=== PATIENT | male | born 1945 | race Caucasian/White ===

== ENCOUNTER → 2016-10-19 | Outpatient (CLI) | payer OTHER ==
[2016-05-10 21:01] VITALS: BP 128/76
[2016-10-19 12:41] LABS: ALBUMIN 4.5 g/dL (3.4-5.0); BILIRUBIN,DIRECT 0.21 mg/dL (0-0.2); FREE T4 (FREE THYROXINE) 1.32 ng/dL (0.76-1.46); TOTAL PROTEIN 8.4 g/dL (6.4-8.2); TSH (3RD GENERATION) 1.803 uIU/mL (0.358-3.74)
--- NOTE | 2016-10-19 13:10 | CT ---
HISTORY: Low back pain, spinal stenosis Study: CT lumbar spine without contrast Comparison: Lumbar radiographs performed on December 30, 2015 Technique: Multiple axial images of the lumbar spine were obtained from the thoracolumbar junction to the sacrum without the administration of IV contrast. Sagittal and coronal reformats were perfor med and reviewed. Findings: Imaging of the lumbar spine demonstrates the patient to be status post L4-L5 posterior interbody fus ion. There is lucency along the tip of the right L5 pedicular screw for which loosening should be co nsidered. There is grade 1 anterolisthesis of L4 on L5. Very mild, grade 1, retrolisthesis of L3 on L4 is noted as well. Vertebral body height is maintained throughout. No compression fracture is visu alized. Exuberant, bulky multilevel marginal osteophytosis is present. Multilevel mild loss of disc space height is evident as well as minimal degenerative endplate changes anteriorly. Multilevel face t arthropathy is also present. At the L2-L3 level there appears to be a mild broad-based disc bulge with a right lateral recess predominance and facet hypertrophy, resulting in what appears to be very mild canal stenosis as well as mild neuroforaminal compromise on the right. At the L3-L4 level ther e is a broad-based calcified disc bulge as well as facet hypertrophy and ligamentum flavum thickenin g which, along with listhesis at this level, are resulting in what appears to be severe canal stenos is as well as severe bilateral neuroforaminal compromise. At the L4-L5 level there is a broad-based disc osteophyte as well as facet hypertrophy which, along with listhesis at this level, are resultin g in what appears to be severe neuroforaminal compromise. At the L5-S1 level there is a broad-based disc bulge as well as facet hypertrophy, resulting in what appears to be mild bilateral neuroforamin al compromise. Evaluation of the pre and paravertebral soft tissues is grossly unremarkable. There i s diverticulosis of the colon. A large amount of calcified plaque is identified at the origin of the celiac trunk, likely resulting in significant stenosis. There is ectasia of the bilateral common il iac arteries. IMPRESSION: 1. Multilevel degenerative disc disease and facet arthropathy, most significant at the L3-L4 level, where there appears to be severe canal stenosis as well as severe bilateral neuroforaminal compromi se. 2. Status post L4-L5 posterior interbody fusion, with possible loosening along the tip of the right L5 pedicular screw. Please see above discussion regarding incidental abdominal findings. Reported By:
== END | disposition home or self-care (01) | DRG 552 ==
LOC: RAD 11:50
PROVIDERS: ATTEND Nurse Practitioner Family
DX: M54.5 Low back pain (principal); M48.06 Spinal stenosis, lumbar region; Z51.81 Encounter for therapeutic drug level monitoring; E78.4 Other hyperlipidemia
CPT/HCPCS: 36415; 72131; 80076; 84439; 84443

== ENCOUNTER 2017-02-10 11:38 | Observation (INO) | payer OTHER ==
[2017-02-10 11:47] VITALS: BMI 23.6
--- NOTE | 2017-02-10 12:26 | DR.GENAD ---
HPI - PCP Primary Care Physician: Radhika - HPI Comment HPI Comment: NO FEVER. PATIENT COUGHING. PATIENT IS WEAK AND HAVE EXERSIONAL DYSPNEA AND PND. - Complaint/Symptoms Chief Complaint Doctors Comments: INCRESING SOB FOR FEW DAYS WORSE TODAY. SOME CHEST DISCOMFORT. Chief Complaint:: "I have been having shortness of breath now for about 2-3 days. I can't seem to take a deep breath. It has even kept me up at night. I also just feel so weak." - Nurses notes reviewed Nurses Notes Review: Yes - Source History Provided: Patient, EMS - Mode of Arrival Mode of Arrival: Ambulatory - Timing Onset of Chief Complaint: 02/08/17 Came on: Gradually - Duration Duration: Constant Duration: Days - Severity Severity: Moderate PMH - PMH Past Medical History: Yes Past Medical History: Angina, Anxiety, Coronary Artery Disease, Diabetes, Hypertension, [place] Past Surgical History: Yes Surgical History: CABG/Valve Surgery, Other - Family History History of Family Medical Conditions: Yes Family Medical History: Cancer, Coronary Artery Disease - Social History Does patient currently use any type of tobacco product: No Have you used tobacco products in the last 12 months: No Type of Tobacco Use: None Does any household member use tobacco: No Alcohol Use: None Do you use any recreational Drugs:: No Lives With: Alone Lives Where: Home - infectious screening In the last 2 months have you had wt loss of >10#?: NO Have you had fever, night sweats or hemotysis?: No Have you traveled outside the country in the last 6 months?: No Isolation: Standard ROS - Review of Systems Constitutional: Weakness, Fatigue. negative: See HPI, Fever Eyes: No Symptoms Reported. negative: Eye Pain, Discharge ENTM: No Symptoms Reported. negative: Ear Discharge, Nose Discharge, Nose Congestion, Throat Pain Respiratoy: Productive Cough, Short of Breath, Wheezing. negative: Hemoptysis Cardiovascular: Chest Pain. negative: Edema, Palpitations, Syncope Gastrointestinal/Abdominal: Nausea. negative: Abdominal Pain, Diarrhea, Vomiting Genitourinary: No Symptoms Reported. negative: Dysuria, Frequency, Hematuria Neurological: Weakness, Dizziness Musculoskeletal: Muscle Pain Integumentary: No Symptoms Reported Hematologic/Lymphatic: Easy Bleeding, Easy Bruising Endocrine: No Symptoms Reported All Other Systems: Reviewed and Negative PE - Vital Signs Vitals: Temperature 98 F Pulse Rate 77 Respiratory Rate 18 Blood Pressure [Left Arm] 112/66 Blood Pressure 139/88 O2 Sat by Pulse Oximetry 100 - General Limitations: No Limitations General Appearance: Alert - Head Head Exam: Normal Inspection - Eyes Eye exam: Normal Appearance - ENT ENT Exam: Normal External Ear Exam External Ear Exam: Normal External Inspection TM/Canal Exam: Bilateral Normal Nose Exam: Normal Nose Exam Mouth Exam: Normal Inspection Throat Exam: Normal Inspection - Neck Neck Exam: Trachea Midline - Chest Chest Inspection: Symmetric Chest Wall Rise - Respiratory Respiratory Exam: Respiratory Distress Respiratory Exam: Bilateral Wheezing, Bilateral Rhonchi, Upper Wheezing, Upper Rhonchi, Lower Wheezing, Lower Rhonchi - Cardiovascular Cardiovascular Exam: Regular Rate, Normal Rhythm, Normal Heart Sounds - Abdominal Exam Abdominal Exam: Normal Bowel Sounds, Soft. negative: Tenderness - Extremities Extremities Exam: Normal Inspection. negative: Tenderness, Edema - Back Back Exam: Normal Inspection - Neurologic Neurological Exam: Alert, Oriented X3 - Psychiatric Psychiatric Exam: Anxious - Skin Skin Exam: Normal Color MDM - Differential Diagnosis Differential Diagnosis: COPD WITH BRONCHITIS, PNEUMONIA, CHF, [place], Course - Treatment Treatment: SEE ORDERS. LASIX IV IN ED. - Consultation Consultation Comments: DISCUSS PATIENT WITH DR. TORRES. HE WILL ADMIT PATIENT. - Education/Counseling Education/Counseling: Patient, Education Educated On: Treatment, Diagnosis, Needs for Follow Up ROR - Labs Reviewed Laboratory Results Reviewed?: Yes Result Diagrams: 02/11/17 04:55 02/11/17 04:55 - XRAY XRAY Interpreted by: Radiologist - EKG Rhythm: Paced (EKG NOTED.) - Diagnosis Discharge Problem: Respiratory distress CHF (congestive heart failure) Qualifiers: Congestive heart failure type: combined Congestive heart failure chronicity: acute on chronic Qualified Code(s): I50.43 - Acute on chronic combined systolic (congestive) and diastolic (congestive) heart failure - Discharge Plan Disposition: ADMITTED INPATIENT Condition: Stable - Follow ups/Referrals - Instructions
[2017-02-10 12:54] LABS: BASOPHILS % (AUTO) 0.5 % (0.2-1.0); EOSINOPHILS # (AUTO) 0.1 x10^3/uL (0.0-0.2); EOSINOPHILS % (AUTO) 1.3 % (0.9-2.9); HEMATOCRIT 34.8 % (42.0-54.0); HEMOGLOBIN 11.6 g/dL (13.5-18.0); LYMPHOCYTES # (AUTO) 0.7 X10^3/uL (1.3-2.9); LYMPHOCYTES % (AUTO) 16.5 % (21.0-51.0); MEAN CORPUSCULAR HEMOGLOBIN 31.3 pg (27.0-34.0); MEAN CORPUSCULAR HGB CONC 33.3 g/dL (33.0-35.0); MEAN CORPUSCULAR VOLUME 94.1 fL (80.0-100.0); MONOCYTES # (AUTO) 0.5 x10^3/uL (0.3-0.8); MONOCYTES % (AUTO) 11.7 % (0.0-13.0); NEUTROPHILS # (AUTO) 2.9 x10^3/uL (2.2-4.8); PLATELET COUNT 126 X10^3/uL (150.0-450.0); RED CELL DISTRIBUTION WIDTH 14.9 % (11.6-16.5); WHITE BLOOD COUNT 4.1 X10^3/uL (3.6-10.0)
--- NOTE | 2017-02-10 13:05 | RAD ---
HISTORY: Shortness of breath Study: Single view chest Comparison: 03/09/2016 Findings: Stable chronic sternotomy changes and AICD. There are small bilateral pleural effusions with pulmonar y vascular congestion and hazy perihilar opacities compatible with pulmonary edema. Mildly enlarged c ardiac silhouette. The soft tissues are unremarkable. IMPRESSION: 1. Findings compatible with pulmonary edema and small bilateral effusions. Reported By:
[2017-02-10 13:14] LABS: BLOOD UREA NITROGEN 22 mg/dL (7-18); CALCIUM 8.4 mg/dL (8.5-10.1); CARBON DIOXIDE 26.9 mmol/L (21-32); CHLORIDE 103 mmol/L (98-107); CREATININE 1.44 mg/dL (0.70-1.30); SODIUM 141 mmol/L (136-145); TROPONIN I 0.02 ng/mL (0-1.5); eGFR BLACK RACES > 60 (>60); eGFR NON BLACK RACES 51 (>60)
[2017-02-10 13:16] LABS: ALANINE AMINOTRANSFERASE 61 Units/L (12-78); ALBUMIN 3.3 g/dL (3.4-5.0); ALKALINE PHOSPHATASE 75 Units/L (46-116); ASPARTATE AMINO TRANSFERASE 29 Units/L (15-37); CKMB % 2.8 % (<4); CREATINE KINASE 72 Units/L (39-308); TOTAL PROTEIN 6.3 g/dL (6.4-8.2)
[2017-02-10] MEDS ORDERED: LASIX IVP ONE ×2 (13:54→14:06)
[2017-02-10 20:07] LABS: CKMB % 2.2 % (<4); CREATINE KINASE MB 1.7 ng/mL (0-4.0); TROPONIN I 0.04 ng/mL (0-1.5)
[2017-02-10] MEDS ORDERED: RESTORIL CAP 15 MG PO PRN (20:13)
[2017-02-10] MEDS ORDERED: XANAX PO PRN (20:13)
[2017-02-10] MEDS ORDERED: PATIENT'S HOME MEDICATION (Metformin Hcl [Metformin Hcl] 1,000 MG) PO SCH (20:15)
[2017-02-10] MEDS ORDERED: GLUCOPHAGE ONE (20:34)
[2017-02-10] MEDS: ZESTRIL TAB 5 MG PO SCH (20:49)
[2017-02-10] MEDS: GLUCOPHAGE PO SCH (20:49)
[2017-02-10] MEDS: LASIX IVP SCH (20:49)
[2017-02-10] MEDS: K-DUR TAB 20 MEQ PO SCH (20:49)
[2017-02-10] MEDS ORDERED: HumuLIN R SUBCUT PRN (22:39)
[2017-02-10] MEDS: NORCO 10/325 TAB PO SCH (22:40)
[2017-02-11 01:57] LABS: CKMB % 2.2 % (<4); CREATINE KINASE MB 1.6 ng/mL (0-4.0); TROPONIN I 0.03 ng/mL (0-1.5)
[2017-02-11 05:15] LABS: BASOPHILS % (AUTO) 0.6 % (0.2-1.0); EOSINOPHILS # (AUTO) 0.1 x10^3/uL (0.0-0.2); EOSINOPHILS % (AUTO) 1.9 % (0.9-2.9); HEMATOCRIT 35.1 % (42.0-54.0); LYMPHOCYTES # (AUTO) 1.1 X10^3/uL (1.3-2.9); LYMPHOCYTES % (AUTO) 28.6 % (21.0-51.0); MEAN CORPUSCULAR HEMOGLOBIN 31.7 pg (27.0-34.0); MEAN CORPUSCULAR HGB CONC 34.2 g/dL (33.0-35.0); MEAN CORPUSCULAR VOLUME 92.9 fL (80.0-100.0); MEAN PLATELET VOLUME 8.9 fL (7.4-11.0); MONOCYTES # (AUTO) 0.6 x10^3/uL (0.3-0.8); MONOCYTES % (AUTO) 15.4 % (0.0-13.0); NEUTROPHILS # (AUTO) 2.1 x10^3/uL (2.2-4.8); NEUTROPHILS % (AUTO) 53.5 % (42.0-75.0); PLATELET COUNT 141 X10^3/uL (150.0-450.0); RED BLOOD COUNT 3.78 X10^6/uL (4.7-6.0); RED CELL DISTRIBUTION WIDTH 14.9 % (11.6-16.5); WHITE BLOOD COUNT 3.9 X10^3/uL (3.6-10.0)
[2017-02-11 05:23] LABS: ALANINE AMINOTRANSFERASE 58 Units/L (12-78); ALBUMIN 3.5 g/dL (3.4-5.0); ALKALINE PHOSPHATASE 80 Units/L (46-116); ASPARTATE AMINO TRANSFERASE 28 Units/L (15-37); BLOOD UREA NITROGEN 21 mg/dL (7-18); CALCIUM 8.7 mg/dL (8.5-10.1); CARBON DIOXIDE 30.9 mmol/L (21-32); CHLORIDE 101 mmol/L (98-107); CREATININE 1.51 mg/dL (0.70-1.30); SODIUM 142 mmol/L (136-145); TOTAL PROTEIN 6.7 g/dL (6.4-8.2); eGFR BLACK RACES 59 (>60); eGFR NON BLACK RACES 49 (>60)
[2017-02-11] MEDS: NORCO 10/325 TAB PO SCH (06:22)
[2017-02-11] MEDS ORDERED: COLACE CAP 100 MG PO PRN (07:54)
[2017-02-11 08:04] VITALS: BP 97/59
[2017-02-11] MEDS ORDERED: LASIX PO SCH (09:00)
[2017-02-11] MEDS ORDERED: GLUCOPHAGE ONE (09:08)
[2017-02-11] MEDS: LASIX IVP SCH (09:16)
[2017-02-11] MEDS: K-DUR TAB 20 MEQ PO SCH (09:16)
[2017-02-11] MEDS: ZESTRIL TAB 5 MG PO SCH (09:16)
[2017-02-11] MEDS: GLUCOPHAGE PO SCH (09:17)
[2017-02-11] MEDS ORDERED: SNACK - Diabetic Appropriate PO SCH (20:00)
== END 2017-02-11 09:30 | disposition home or self-care (01) | DRG 189 ==
LOC: ER 11:55 → INTOOBSV 16:36 → ICU 16:36
PROVIDERS: ADMIT Internal Medicine; ATTEND Internal Medicine
DX: J81.0 Acute pulmonary edema (principal); R06.09 Other forms of dyspnea; I50.43 Acute on chronic combined systolic (congestive) and diastolic (congestive) heart failure; R06.02 Shortness of breath; I25.10 Atherosclerotic heart disease of native coronary artery without angina pectoris; I10 Essential (primary) hypertension; F41.8 Other specified anxiety disorders; R94.31 Abnormal electrocardiogram [ECG] [EKG]; E11.65 Type 2 diabetes mellitus with hyperglycemia; Z95.810 Presence of automatic (implantable) cardiac defibrillator
CPT/HCPCS: 36415; 71010; 80053; 82550; 82553; 84484; 85025; 93005; 93010; 96374; 99284; 99285; A4216; A4222; G0378; J1815; J1940

== ENCOUNTER → 2017-02-15 | Outpatient (CLI) | payer OTHER ==
[2017-02-11 08:04] VITALS: BP 97/59
[2017-02-15 12:26] LABS: ALBUMIN 3.6 g/dL (3.4-5.0); BILIRUBIN,DIRECT 0.32 mg/dL (0-0.2); TOTAL PROTEIN 6.6 g/dL (6.4-8.2); TSH (3RD GENERATION) 5.542 uIU/mL (0.358-3.74)
== END ==
LOC: LAB 11:33
PROVIDERS: ATTEND Internal Medicine Clinical Cardiac Electrophysiology
DX: Z51.81 Encounter for therapeutic drug level monitoring (principal); Z79.899 Other long term (current) drug therapy
CPT/HCPCS: 36415; 80076; 84443

== ENCOUNTER → 2017-03-11 | Outpatient (CLI) | payer OTHER ==
[2017-02-11 08:04] VITALS: BP 97/59
[2017-03-11 10:10] LABS: ALANINE AMINOTRANSFERASE 28 Units/L (12-78); ALBUMIN 3.6 g/dL (3.4-5.0); ALKALINE PHOSPHATASE 70 Units/L (46-116); ASPARTATE AMINO TRANSFERASE 24 Units/L (15-37); BLOOD UREA NITROGEN 20 mg/dL (7-18); CALCIUM 8.8 mg/dL (8.5-10.1); CARBON DIOXIDE 28.3 mmol/L (21-32); CHLORIDE 102 mmol/L (98-107); CHOLESTEROL 109 mg/dL (0-200); CREATININE 1.63 mg/dL (0.70-1.30); HDL CHOLESTEROL 55 mg/dL (40-60); SODIUM 141 mmol/L (136-145); TOTAL PROTEIN 6.5 g/dL (6.4-8.2); TRIGLYCERIDES 56 mg/dL (0-150); TSH (3RD GENERATION) 3.357 uIU/mL (0.358-3.74); eGFR BLACK RACES 54 (>60); eGFR NON BLACK RACES 44 (>60)
[2017-03-11 10:12] LABS: CREATININE,URINE 119.03 mg/dL (40-278); MICROALBUMIN,URINE 28.4 mg/L
== END ==
LOC: LAB 09:22
PROVIDERS: ATTEND Nurse Practitioner Family
DX: I10 Essential (primary) hypertension (principal); E11.9 Type 2 diabetes mellitus without complications; E78.4 Other hyperlipidemia
CPT/HCPCS: 36415; 80053; 80061; 82043; 82306; 84443

== ENCOUNTER 2017-03-30 08:26 | Emergency (ER) | payer OTHER ==
[2017-03-30 08:30] VITALS: BP 142/92; BMI 24.3
--- NOTE | 2017-03-30 08:44 | DR.N/VMALE ---
HPI - Time Seen Time seen: 08:40 - Primary Care Physician Primary Care Physician: SEGUNDO RICOP - HPI Comment HPI Comment: PATIENT ALSO HAVE HEADACHE. NOT HOLDING DOWN FOOG. VOMITUS IS CLEAR MUCOUS. - Complaints Chief Complaint Doctors Comments: CONGESTION AND SINUS DRAINAGE FOR FEW DAYS. PATIENT IS NOW VOMITING AND IS NAUSEATED. HAVE HISTORY OF GALL STONE. NO FEVER. Chief Complaint:: PT. STATES HE BEGAN VOMITING YESTERDAY MORNING AND HAS BEEN UNABLE TO KEEP ANYTHING DOWN SINCE ONSET. PT. STATES HE HAS BEEN VOMITING PHLEGM. PT. ALSO C/O HEADACHE. - Reviewed Nurses Notes Reviewed: Yes - Source History Provided: Patient - Mode of Arrival Mode of Arrival: Ambulatory - Timing Onset of Chief Complaint: 03/29/17 - Context Onset: Spontaneous Recent: None History of: None - Quality Quality: Bilious - Associated Signs and Symptoms Abdominal Pain Quality: Cramping Abdominal Pain Location: Diffuse Symptoms: Abdominal Pain PMH - PMH Past Medical History: Yes Past Medical History: Angina, Anxiety, Coronary Artery Disease, Diabetes, Hypertension, [place] Past Surgical History: Yes Surgical History: CABG/Valve Surgery, Other - Family History History of Family Medical Conditions: Yes Family Medical History: Cancer, Coronary Artery Disease - Social History Does patient currently use any type of tobacco product: No Have you used tobacco products in the last 12 months: No Type of Tobacco Use: None Does any household member use tobacco: No Alcohol Use: None Do you use any recreational Drugs:: No Lives With: Spouse Lives Where: Home - infectious screening In the last 2 months have you had wt loss of >10#?: NO Have you had fever, night sweats or hemotysis?: No Have you traveled outside the country in the last 6 months?: No Isolation: Standard ROS - Review of Systems Constitutional: No Symptoms Reported. negative: Chills, Fever, Weakness, Fatigue Eyes: No Symptoms Reported. negative: Eye Pain, Discharge ENTM: Nose Discharge, Nose Congestion, Throat Pain. negative: Ear Discharge Respiratoy: No Symptoms Reported, Non-Productive Cough Cardiovascular: No Symptoms Reported Gastrointestinal/Abdominal: Abdominal Pain, Nausea, Vomiting Genitourinary: negative: Dysuria, Hematuria Neurological: Headache Musculoskeletal: Joint Pain. negative: Joint Swelling Integumentary: No Symptoms Reported Hematologic/Lymphatic: No Symptoms Reported Endocrine: No Symptoms Reported All Other Systems: Reviewed and Negative PE - Vital Signs Vitals: Temperature 98.3 F Pulse Rate 77 Respiratory Rate 17 Blood Pressure [Left Arm] 97/59 Blood Pressure 142/92 O2 Sat by Pulse Oximetry 99 - General Limitations: No Limitations General Appearance: Alert - Head Head Exam: Normal Inspection - Eyes Eye exam: Normal Appearance - ENT ENT Exam: Normal External Ear Exam - Neck Neck Exam: Normal Inspection - Chest Chest Inspection: Symmetric Chest Wall Rise - Respiratory Respiratory Exam: Normal Lung Sounds Bilat Respiratory Exam: Bilateral Rhonchi, Lower Rhonchi - Cardiovascular Cardiovascular Exam: Regular Rate, Normal Rhythm, Normal Heart Sounds - Abdominal Exam Abdominal Exam: Normal Bowel Sounds, Soft, Tenderness Abdominal Tenderness: Diffuse, Moderate - Rectal Rectal Exam: Deferred - Exam: Male: Scrotal Swelling. negative: Urethral Discharge - Extremities Extremities Exam: Normal Inspection - Back Back Exam: Normal Inspection - Neurologic Neurological Exam: Alert, Oriented X3 - Psychiatric Psychiatric Exam: Normal Affect, Normal Mood - Skin Skin Exam: Normal Color MDM - Additional Information Obtained Additional Information Obtained From: Family - Differential Diagnosis Differential Diagnosis: Considerations may Include:: Bowel Obstruction, Cholecystitis, Gastritis, Gastroenteritis, Inflammatory BD, PUD (ABDOMINAL PAIN , CHOLELITHIASIS, N/V, GASSTROENTERITTIS), Urinary Tract Infection, Urolithiasis Course - Treatment Treatment: SEE ORDERS. PER DAUGHTER, GALL STONE DIAGNOSE IN [facility]. HE IS GOING TO [facility] IN A WEEK. THEY WILL TAKE CARE OF THE GALL STONE THERE. - Reevaluation 1st: Improved (WITH IM PED IN ED.) - Education/Counseling Education/Counseling: Patient, Education Educated On: Treatment, Diagnosis ROR - Labs Reviewed Laboratory Results Reviewed?: Yes Result Diagrams: 03/30/17 09:17 03/30/17 09:17 Laboratory: WBC 6.3 X10^3/uL (3.6-10.0) 03/30/17 09:17 RBC 4.15 X10^6/uL (4.7-6.0) L 03/30/17 09:17 Hgb 12.8 g/dL (13.5-18.0) L 03/30/17 09:17 Hct 39.0 % (42.0-54.0) L 03/30/17 09:17 MCV 94.0 fL (80.0-100.0) 03/30/17 09:17 MCH 30.8 pg (27.0-34.0) 03/30/17 09: MCHC 32.8 g/dL (33.0-35.0) L 03/30/17 09: RDW 15.6 % (11.6-16.5) 03/30/17 09:17 Plt Count 129 X10^3/uL (150.0-450.0) L 03/30/17 09:17 MPV 9.4 fL (7.4-11.0) 03/30/17 09: Neut % 76.5 % (42.0-75.0) H 03/30/17 09: Lymph % 11.7 % (21.0-51.0) L 03/30/17 09: [place] % 11.5 % (0.0-13.0) 03/30/17 09: Eos % 0.0 % (0.9-2.9) L 03/30/17 09:17 Baso % 0.3 % (0.2-1.0) 03/30/17 09:17 Neut # 4.8 x10^3/uL (2.2-4.8) 03/30/17 09:17 Lymph # 0.7 X10^3/uL (1.3-2.9) L 03/30/17 09:17 [place] # 0.7 x10^3/uL (0.3-0.8) 03/30/17 09:17 Eos # 0.0 x10^3/uL (0.0-0.2) 03/30/17 09:17 Baso # 0.0 X10^3/uL (0.0-0.1) 03/30/17 09:17 Absolute Nucleated RBC 0.1 /100WBC 03/30/17 09:17 Sodium 141 mmol/L (136-145) 03/30/17 09:17 Corrected Sodium TNP 03/30/17 09:17 Potassium 4.3 mmol/L (3.5-5.1) 03/30/17 09:17 Chloride 103 mmol/L (98-107) 03/30/17 09:17 Carbon Dioxide 22.2 mmol/L (21-32) 03/30/17 09:17 BUN 35 mg/dL (7-18) H 03/30/17 09:17 Creatinine 1.83 mg/dL (0.70-1.30) H 03/30/17 09:17 Est GFR (MDRD) Af Amer 47 (>60) L 03/30/17: Est GFR (MDRD) Non-Af 39 (>60) L 03/30/17 09:17 Glucose 107 mg/dL (65-99) H 03/30/17 09: Calcium 8.7 mg/dL (8.5-10.1) 03/30/17: Corrected Calcium TNP 03/30/17: Total Bilirubin 3.00 mg/dL (0.2-1.0) H 03/30/17 09: AST 684 Units/L (15-37) H 03/30/17:17 ALT 378 Units/L (12-78) H 03/30/17 09:17 Alkaline Phosphatase 161 Units/L (46-116) H 03/30/17 09:17 Total Protein 6.8 g/dL (6.4-8.2) 03/30/17 09: Albumin 3.7 g/dL (3.4-5.0) 03/30/17 09: Globulin 3.1 g/dL (2.5-4.5) 03/30/17 09: Albumin/Globulin Ratio 1.2 Ratio (1.1-2.1) 03/30/17 09:17 Amylase 28 Units/L (25-115) 03/30/17 09:17 Lipase 98 Units/L (73-393) 03/30/17 09:17 Specimen Type Clean catch urine 03/30/17 09:03 Urine Color [place] (YELLOW) 03/30/17 09:03 Urine Appearance Clear (CLEAR) 03/30/17 09:03 Urine pH 5.0 (5.0 - 8.0) 03/30/17 09:03 Ur Specific [place] 1.025 (1.000-1.030) 03/30/17 09:03 Urine Protein 3+ (NEGATIVE) 03/30/17 09:03 Urine Glucose (UA) Negative (NEGATIVE) 03/30/17 09:03 Urine Ketones 2+ (NEGATIVE) 03/30/17 09:03 Urine Occult Blood 1+ (NEGATIVE) 03/30/17 09:03 Urine Nitrite Negative (NEGATIVE) 03/30/17 09:03 Urine Bilirubin 1+ (NEGATIVE) 03/30/17 09:03 Urine Urobilinogen 2+ (NORMAL) 03/30/17 09:03 Ur Leukocyte Esterase 1+ (NEGATIVE) 03/30/17 09:03 Urine RBC Rare /HPF (NEGATIVE) 03/30/17 09:03 Urine WBC 0-2 /HPF (NEGATIVE) 03/30/17 09:03 Ur Squamous Epith Cells Rare /HPF (NEGATIVE) 03/30/17 09:03 Urine Bacteria Trace /HPF (NEGATIVE) 03/30/17 09:03 Hyaline Casts Few /LPF (NEGATIVE) 03/30/17 09:03 Urine Mucus Few /HPF (NEGATIVE) 03/30/17 09:03 Ur Culture Indicated? No/not indicated 03/30/17 09:03 - XRAY XRAY Interpreted by: Radiologist XRAY Findings: REPORT DISCUSS WITH PATIENT. - Diagnosis Discharge Problem: Nausea and vomiting in adult patient Abdominal pain Qualifiers: Abdominal location: generalized Qualified Code(s): R10.84 - Generalized abdominal pain - Discharge Plan Disposition: HOME, SELF-CARE Condition: Stable Prescriptions: Amoxicillin [Amoxil 875 mg] 875 mg PO Q12H #20 tab Cetirizine HCl [Zyrtec] 10 mg PO DAILY #30 tab Ondansetron HCl [Zofran Tab 4 mg] 4 mg PO Q8H PRN #12 tab PRN Reason: Nausea/Vomiting - Follow ups/Referrals Follow ups/Referrals: RENÉ KANG [Primary Care Provider] - 03/31/17 GREGORY MORENO [CONSULTING PHYSICIAN] - 2 days - Instructions Instructions: Cholelithiasis, Sinusitis, Adult, [id number], Abdominal Pain, Adult, [id number] Additional Instructions: RETURN TO ED IF WORSE.
[2017-03-30] MEDS ORDERED: ZOFRAN INJ 4 MG VIAL IVP ONE (08:59)
[2017-03-30] MEDS ORDERED: ZOFRAN INJ 4 MG VIAL IM ONE (09:03)
[2017-03-30] MEDS ORDERED: ZOFRAN INJ 4 MG VIAL ONE (09:04)
[2017-03-30 09:25] LABS: BILIRUBIN,URINE 1+ (NEGATIVE); BLOOD/HEMOGLOBIN,URINE 1+ (NEGATIVE); GLUCOSE, URINE NEGATIVE (NEGATIVE); KETONES,URINE 2+ (NEGATIVE); LEUKOCYTE ESTERASE ,URINE 1+ (NEGATIVE); NITRITES,URINE NEGATIVE (NEGATIVE); PROTEIN,URINE 3+ (NEGATIVE); UROBILINOGEN,URINE 2+ (NORMAL)
[2017-03-30 09:29] LABS: BASOPHILS % (AUTO) 0.3 % (0.2-1.0); HEMOGLOBIN 12.8 g/dL (13.5-18.0); LYMPHOCYTES # (AUTO) 0.7 X10^3/uL (1.3-2.9); LYMPHOCYTES % (AUTO) 11.7 % (21.0-51.0); MEAN CORPUSCULAR HEMOGLOBIN 30.8 pg (27.0-34.0); MEAN CORPUSCULAR HGB CONC 32.8 g/dL (33.0-35.0); MEAN PLATELET VOLUME 9.4 fL (7.4-11.0); MONOCYTES # (AUTO) 0.7 x10^3/uL (0.3-0.8); MONOCYTES % (AUTO) 11.5 % (0.0-13.0); NEUTROPHILS # (AUTO) 4.8 x10^3/uL (2.2-4.8); NEUTROPHILS % (AUTO) 76.5 % (42.0-75.0); PLATELET COUNT 129 X10^3/uL (150.0-450.0); RED BLOOD COUNT 4.15 X10^6/uL (4.7-6.0); RED CELL DISTRIBUTION WIDTH 15.6 % (11.6-16.5); WHITE BLOOD COUNT 6.3 X10^3/uL (3.6-10.0)
[2017-03-30 09:37] LABS: ALANINE AMINOTRANSFERASE 378 Units/L (12-78); ALBUMIN 3.7 g/dL (3.4-5.0); ALKALINE PHOSPHATASE 161 Units/L (46-116); AMYLASE 28 Units/L (25-115); ASPARTATE AMINO TRANSFERASE 684 Units/L (15-37); BLOOD UREA NITROGEN 35 mg/dL (7-18); CALCIUM 8.7 mg/dL (8.5-10.1); CARBON DIOXIDE 22.2 mmol/L (21-32); CHLORIDE 103 mmol/L (98-107); CREATININE 1.83 mg/dL (0.70-1.30); LIPASE 98 Units/L (73-393); SODIUM 141 mmol/L (136-145); TOTAL PROTEIN 6.8 g/dL (6.4-8.2); eGFR BLACK RACES 47 (>60); eGFR NON BLACK RACES 39 (>60)
[2017-03-30 09:45] LABS: APPEARANCE,URINE CLEAR (CLEAR); BACTERIA,URINE TRACE /HPF (NEGATIVE); COLOR,URINE AMBER (YELLOW); RBC,URINE RARE /HPF (NEGATIVE); SQUAMOUS EPITHELIAL CELL,UR RARE /HPF (NEGATIVE)
[2017-03-30 09:46] LABS: HYALINE CASTS, URINE FEW /LPF (NEGATIVE); MUCUS,URINE FEW /HPF (NEGATIVE)
--- NOTE | 2017-03-30 09:53 | RAD ---
The examination: Abdomen series with PA chest History: Abdominal pain, nausea and vomiting Findings: PA chest: The the heart is borderline enlarged. Sternal wires are present. A multi chamber pacemaker is present. The lungs and pleural spaces are clear. Abdomen: Supine and erect views of abdomen demonstrate mild small and large bowel distention in the u pper abdomen. No fluid level formation, free air, mass formation or ascites is identified. There is a rteriosclerotic calcification involving branches of the celiac trunk. Surgical fusion hardware is pre sent at the L4-5 level. Impression: 1. Mild cardiomegaly with post sternotomy changes and cardiac pacing device. 2. Slight nonobstructive intestinal distention consistent with ileus. 3. Significant aortoiliac and visceral arteriosclerosis. 4. Status post lumbar fusion. Reported By:
== END 2017-03-30 10:54 | disposition home or self-care (01) ==
LOC: ER 08:33
DX: R10.84 Generalized abdominal pain (principal); R11.2 Nausea with vomiting, unspecified; I51.7 Cardiomegaly
CPT/HCPCS: 36415; 74022; 80053; 81001; 82150; 83690; 85025; 96372; 99283; J2405

== ENCOUNTER 2021-12-01 12:14 | Observation (INO) ==
--- NOTE | 2021-12-01 12:29 | DR.AMS ---
HPI Time Seen Time Seen by Provider: 12/01/21 12:20 Complaint Cheif Complaint Doctors Comments: PATIENT WAS AT PAP OFFICE AND LEFT AND PASSED OUT IN HIS VEHICLE. PATIENT WAS WITH PULSE WHEN JUNIOR SYSTEMS ADMINISTRATOR ARRIVED. THERE WERE INDIVIDUALS ON THE SCENE DOING CPR BUT PARAMEDIS CHECKED JENNIFER PULSE AND IT WS WEAK BUT PRESENT. THE PATIENT BECAME IMMEDIATELY ALERT AFTER PARAMEDICS ARRIVED ON SCENE. PMH PMH Past Medical History: Angina, Anxiety, Coronary Artery Disease, Diabetes, Hypertension and HI Past Surgical History: Yes Surgical History: CABG/Valve Surgery and Other Family History Family Medical History: Cancer and Coronary Artery Disease Social History Do you use any recreational Drugs:: No ROS Review of Systems Constitutional: Weakness and Irritable Eyes: No Symptoms Reported ENTM: No Symptoms Reported Respiratoy: Dry Cough and Short of Breath Cardiovascular: Palpitations Gastrointestinal/Abdominal: Nausea Genitourinary: No Symptoms Reported Musculoskeletal: No Symptoms Reported and See HPI Integumentary: No Symptoms Reported Hematologic/Lymphatic: No Symptoms Reported Endocrine: No Symptoms Reported Psychiatric: No Symptoms Reported PE Vitals Vital Signs: Temp Pulse Resp BP BP Pulse Ox O2 Del Method 05/17/20 09:22 132/80 12/01/21 18:15 69 16 94 L 12/01/21 18:15 103/56 12/01/21 18:00 69 15 94 L 12/01/21 18:00 112/56 12/01/21 17:45 69 16 96 12/01/21 17:45 118/65 12/01/21 17:30 114/60 12/01/21 17:15 69 15 96 12/01/21 17:15 109/57 12/01/21 17:00 69 18 97 12/01/21 17:00 132/74 12/01/21 16:45 69 24 95 12/01/21 16:45 130/74 12/01/21 16:30 69 27 H 96 12/01/21 16:30 138/84 12/01/21 16:15 69 21 97 12/01/21 16:15 93/59 12/01/21 16:00 69 20 97 12/01/21 16:00 96/59 12/01/21 15:48 70 19 99 12/01/21 15:48 93/59 12/01/21 15:45 69 18 96 12/01/21 15:45 76/51 12/01/21 15:31 69 18 98 12/01/21 15:31 90/56 12/01/21 15:30 69 18 98 12/01/21 15:15 69 18 100 12/01/21 15:15 106/58 12/01/21 15:00 69 17 100 12/01/21 15:00 137/69 12/01/21 14:47 69 19 99 12/01/21 14:47 114/70 12/01/21 14:45 69 17 100 12/01/21 14:31 74 100 12/01/21 14:15 69 18 99 12/01/21 14:15 99/56 12/01/21 14:00 69 19 100 12/01/21 14:00 108/59 12/01/21 13:45 69 19 99 12/01/21 13:45 109/58 12/01/21 13:30 69 18 100 12/01/21 13:30 120/60 12/01/21 12:25 95 Venturi Mask 12/01/21 13:15 69 19 99 12/01/21 13:15 111/59 12/01/21 13:00 69 19 94 L 12/01/21 13:00 102/56 12/01/21 12:45 69 20 94 L 12/01/21 12:45 104/55 12/01/21 12:36 69 15 99 12/01/21 12:16 99.1 F 70 20 111/60 84 L Nasal Cannula O2 Flow Rate FiO2 05/17/20 09:22 12/01/21 18:15 12/01/21 18:15 12/01/21 18:00 12/01/21 18:00 12/01/21 17:45 12/01/21 17:45 12/01/21 17:30 12/01/21 17:15 12/01/21 17:15 12/01/21 17:00 12/01/21 17:00 12/01/21 16:45 12/01/21 16:45 12/01/21 16:30 12/01/21 16:30 12/01/21 16:15 12/01/21 16:15 12/01/21 16:00 12/01/21 16:00 12/01/21 15:48 12/01/21 15:48 12/01/21 15:45 12/01/21 15:45 12/01/21 15:31 12/01/21 15:31 12/01/21 15:30 12/01/21 15:15 12/01/21 15:15 12/01/21 15:00 12/01/21 15:00 12/01/21 14:47 12/01/21 14:47 12/01/21 14:45 12/01/21 14:31 12/01/21 14:15 12/01/21 14:15 12/01/21 14:00 12/01/21 14:00 12/01/21 13:45 12/01/21 13:45 12/01/21 13:30 12/01/21 13:30 12/01/21 12:25 6 50 12/01/21 13:15 12/01/21 13:15 12/01/21 13:00 12/01/21 13:00 12/01/21 12:45 12/01/21 12:45 12/01/21 12:36 12/01/21 12:16 General Limitations: No Limitations General Appearance: Alert and In Distress (MILD DISTRESS) Eyes Eye exam: Normal Appearance, PERRL and EOMI ENT ENT Exam: Normal Exam and Normal Oropharynx External Ear Exam: Normal External Inspection TM/Canal Exam: Bilateral: Normal Mouth Exam: Normal Inspection Throat Exam: Normal Inspection Chest Chest Inspection: Normal Inspection and Symmetric Chest Wall Rise Respiratory Respiratory Exam: Normal Lung Sounds Bilat Cardiovascular Cardiovascular Exam: Regular Rate and Normal Rhythm Abdominal Exam Abdominal Exam: Normal Inspection and Normal Bowel Sounds Extremities Extremities Exam: Normal Inspection and Full ROM Back Back Exam: Normal Inspection and Full ROM Neurological Neurological Exam: Alert and Oriented X3 Patient Oriented To: Person, Place and Time Psychological Psychiatric Exam: Depressed MDM Differential Diagnosis Metabolic: Dehydration (CARDIAC ARRYTHMIA,SYNCOPAL EPISODE) and Hypoxemia COURSE Treatment Treatment: PATIENT REMAINED STABLE DURING ER EVALUATION. HE HAD COVID TEST THAT WAS POSITIVE IN THE ER. EKG SHOWED VENTICULAR PACED RHYTHM. THE PATIENT WAS GIVEN OXYGEN IN ER AND WAS STEADY WEANED TO TO NASAL CANNULA AT 2 L/M WHICH MAINTAINED AN O2 SAT OF 98%. HE WAS TRIED ON ROOM AIR AND MAINTAINED O2 SAT OF 95%. THIS PATIENT WAS COVID POSITIVE AND CARDIAC WORKUP WAS NEGATIVE. SINCE THE PATIENT HAD THIS APNEIC AND PULSELESS EPISODE REQUIRING A SHORT EPISODE OF CPR. THE PATIENT HAS A H/O CARDIAC BYPASS SURGERY AND HE WAS TOLD AT [facility] HE NEEDED TO BE REFERRED TO OBSERVATION TO R/O AMI. THE PATIENT AGREED TO THI PLAN. SPOKE TO DR LARIOS ABOUT THIS PATIENT AT 5:15 HE HE ACCEPTED THIS PATIENT TO OBSERVATION. DR ESPINOZA WAS PLANNING ON HAVING THE PATIENT SEEN BY CARDIAOLGIST DR AGUSTIN AND SINCE HE IS HERE TOMORROW , HE WANTED A CONSULT ON THIS PATIENT. THE PATIENT HD AN ELEVATED D-DIME AND CTA OF CHEST WAS DONE AND IT WAS NEGATIVE FOR PE. ROR Labs Reviewed Laboratory Results Reviewed?: Yes Result Diagrams: 12/01/21 12:28 12/01/21 12:28 Laboratory: WBC 4.3 X10^3/uL (3.6-10.0) 12/01/21 12: RBC 4.91 X10^6/uL (4.7-6.0) 12/01/21 12:28 Hgb 16.0 g/dL (13.5-18.0) 12/01/21 12:28 Hct 46.2 % (42.0-54.0) 12/01/21 12:28 MCV 94.2 fL (80.0-100.0) 12/01/21 12:28 MCH 32.7 pg (27.0-34.0) 12/01/21 12: MCHC 34.7 g/dL (33.0-35.0) 12/01/21 12:28 RDW 14.2 % (11.6-16.5) 12/01/21 12:28 Plt Count 89 X10^3/uL (150.0-450.0) L 12/01/21 12:28 MPV 9.3 fL (7.4-11.0) 12/01/21 12:28 Neut % (Auto) 73.9 % (42.0-75.0) 12/01/21 12:28 Lymph % (Auto) 21.6 % (21.0-51.0) 12/01/21 12:28 [place] % (Auto) 3.7 % (0.0-13.0) 12/01/21 12:28 Eos % (Auto) 0.2 % (0.9-2.9) L 12/01/21 12:28 Baso % (Auto) 0.6 % (0.2-1.0) 12/01/21 12:28 Neut # (Auto) 3.2 x10^3/uL (2.2-4.8) 12/01/21 12:28 Lymph # (Auto) 0.9 X10^3/uL (1.3-2.9) L 12/01/21 12:28 [place] # (Auto) 0.2 x10^3/uL (0.3-0.8) L 12/01/21 12:28 Eos # (Auto) 0.0 x10^3/uL (0.0-0.2) 12/01/21 12: Baso # (Auto) 0.0 X10^3/uL (0.0-0.1) 12/01/21 12: Absolute Nucleated RBC 0.1 /100WBC 12/01/21 12: D-Dimer 2.88 ug/ml (0.0-0.57) H* 12/01/21 12:28 Sample Site Rr 12/01/21 12:27 ABG pH 7.370 (7.35-7.45) 12/01/21 12: ABG pCO2 49.0 mmHg (35.0-45.0) H 12/01/21 12: ABG pO2 70.0 mmHg (80.0-100.0) L 12/01/21 12:27 ABG HCO3 28.3 mmol/L (22-26) H 12/01/21 12:27 ABG O2 Saturation 93.0 % (90-100) 12/01/21 12:27 ABG Base Excess 2.3 mmol/L (-2.0-2.0) H 12/01/21 12:27 Donnie Test Pos 12/01/21 12:27 A-a Gradient 154.0 mmHg 12/01/21 12:27 FiO2 40.0 12/01/21 12:27 Blood Gas Comments Viral well cb 12/01/21 12:27 Sodium 137 mmol/L (136-145) 12/01/21 12:28 Corrected Sodium 138 mmol/L (136-145) 12/01/21 12:28 Potassium 3.3 mmol/L (3.5-5.1) L 12/01/21 12:28 Chloride 99 mmol/L (98-107) 12/01/21 12:28 Carbon Dioxide 28.4 mmol/L (21-32) 12/01/21 12:28 BUN 22 mg/dL (7-18) H 12/01/21 12:28 Creatinine 1.67 mg/dL (0.70-1.30) H 12/01/21 12:28 Est GFR (MDRD) Af Amer 52 (>60) L 12/01/21 12:28 Est GFR (MDRD) Non-Af 43 (>60) L 12/01/21 12:28 Glucose 137 mg/dL (65-99) H 12/01/21 12:28 Calcium 7.6 mg/dL (8.5-10.1) L 12/01/21 12:28 Corrected Calcium 8.4 mg/dL (8.5-10.1) L 12/01/21 12:28 Total Bilirubin 1.00 mg/dL (0.2-1.0) 12/01/21 12:28 AST 28 Units/L (15-37) 12/01/21 12:28 ALT 26 Units/L (12-78) 12/01/21 12:28 Alkaline Phosphatase 55 Units/L (46-116) 12/01/21 12:28 Creatine Kinase 144 Units/L (39-308) 12/01/21 12:28 CK-MB (CK-2) 1.8 ng/mL (0-4.0) 12/01/21 12:28 CK/CKMB % Calc 1.3 % (<4) 12/01/21 12:28 Troponin I High Sens 38.5 ng/L (4.0-60.0) 12/01/21 12:28 B-Natriuretic Peptide 32.8 pg/mL (0-79) 12/01/21 12:28 Total Protein 6.2 g/dL (6.4-8.2) L 12/01/21 12:28 Albumin 3.0 g/dL (3.4-5.0) L 12/01/21 12:28 Globulin 3.2 g/dL (2.5-4.5) 12/01/21 12:28 Albumin/Globulin Ratio 0.9 Ratio (1.1-2.1) L 12/01/21 12:28 SARS-CoV-2 (PCR) Positive (NEGATIVE) A 12/01/21 12:20 Influenza Type A (PCR) Negative (NEGATIVE) 12/01/21 12:20 Influenza Type B (PCR) Negative (NEGATIVE) 12/01/21 12:20 RSV (PCR) Negative (NEGATIVE) 12/01/21 12:20 S. pyogenes (TEM-PCR) Not detected (NOT DETECT) 12/01/21 12:20 Opioid Opioid Risk Tool Age (Scottie box if 16-45): No History of Preadolescent Sexual Abuse: No Total: 0 Total Score Risk Category: Low Risk Copyright: Darian VARNER predicting aberrant behaviors Discharge Plan Diagnosis Discharge Problem: Cardiac arrhythmia, COVID-19, D-dimer, elevated Discharge Plan Patient Disposition: 09 ADMITTED INPATIENT Condition: Stable Orders to Discharge Patient Discharge Orders: Transfer (Routine); Ordered 12/01/21 Ordered By: Dawson Henriquez
[2021-12-01 12:32] LABS: ABG ALLEN TEST POS; ABG BASE EXCESS 2.3 mmol/L (-2.0-2.0); ABG HCO3 28.3 mmol/L (22-26)
[2021-12-01] MEDS ORDERED: NS 1,000 ML IV 1,000 ML ONE (12:40)
[2021-12-01 12:45] LABS: BASOPHILS % (AUTO) 0.6 % (0.2-1.0); EOSINOPHILS % (AUTO) 0.2 % (0.9-2.9); HEMATOCRIT 46.2 % (42.0-54.0); LYMPHOCYTES # (AUTO) 0.9 X10^3/uL (1.3-2.9); LYMPHOCYTES % (AUTO) 21.6 % (21.0-51.0); MEAN CORPUSCULAR HEMOGLOBIN 32.7 pg (27.0-34.0); MEAN CORPUSCULAR HGB CONC 34.7 g/dL (33.0-35.0); MEAN CORPUSCULAR VOLUME 94.2 fL (80.0-100.0); MEAN PLATELET VOLUME 9.3 fL (7.4-11.0); MONOCYTES # (AUTO) 0.2 x10^3/uL (0.3-0.8); MONOCYTES % (AUTO) 3.7 % (0.0-13.0); NEUTROPHILS # (AUTO) 3.2 x10^3/uL (2.2-4.8); NEUTROPHILS % (AUTO) 73.9 % (42.0-75.0); RED BLOOD COUNT 4.91 X10^6/uL (4.7-6.0); RED CELL DISTRIBUTION WIDTH 14.2 % (11.6-16.5); WHITE BLOOD COUNT 4.3 X10^3/uL (3.6-10.0)
[2021-12-01 12:53] LABS: CALCIUM 7.6 mg/dL (8.5-10.1); CARBON DIOXIDE 28.4 mmol/L (21-32); COR CA(FOR HYPOALB) 8.4 mg/dL (8.5-10.1); CREATININE 1.67 mg/dL (0.70-1.30); TOTAL PROTEIN 6.2 g/dL (6.4-8.2)
[2021-12-01 13:04] LABS: STREP A BY PCR NOT DETECTED (NOT DETECT)
[2021-12-01 13:40] LABS: CKMB % 1.3 % (<4); CREATINE KINASE MB 1.8 ng/mL (0-4.0)
[2021-12-01] MEDS ORDERED: NS 100 ML IV 100 ML ONE (14:16)
--- NOTE | 2021-12-01 15:11 | CT ---
HISTORYELEV. D-DIMERSTUDYCTA CHESTCOMPARISONChest radiograph from same day.TECHNIQUECTA chest protocol with axial images from the thoracic inlet to upper abdomen with IV contrast. Sagittal and coronal reformats and MIP images were created. Automated exposure control was utilized.FINDINGSStreak artifact from left chest wall pacemaker limits evaluation. The visualized thyroid gland appears benign. The aorta is not opacified and has moderate atherosclerotic disease and is normal in caliber in the thorax. The pulmonary artery appears normal in caliber. No filling defect is identified to suggest pulmonary embolus. The heart is mildly enlarged. Severe coronary artery calcifications in the LAD and right coronary artery. No pathologic adenopathy in the thorax. No pericardial effusion. Partially visualized density in the gallbladder suspicious for cholelithiasis. See image 138 series 4. Severe splenic artery calcifications noted. Status post median sternotomy and CABG. There are few chronic right-sided rib fractures. There is a filling defect in the dependent right mainstem bronchus image 63 series 4 may represent dependent debris. The trachea appears patent. Mild ground-glass opacity and bronchiectasis in the right upper lobe such as image 61 series 5. Trace bilateral pleural effusions. No pneumothorax. 4 x 2 mm right lower lobe pulmonary nodule image 92 series 5.IMPRESSIONNegative for PE.Small area of ground-glass opacity in the right upper lobe with bronchiectasis may be prior area of inflammation or infection. Consider 3 to six-month follow-up to document stability or resolution.Mild cardiomegaly. Status post median sternotomy, CABG, and pacemaker placement.Small filling defect in the dependent right mainstem bronchus may be debris and and if so predisposes to aspiration. This can be further evaluated with bronchoscopy or follow-up CT.Electronically signed by: Carmelo Wasserman (Dec 01, 2021 15:10:00)
--- NOTE | 2021-12-01 15:18 | RAD ---
HISTORYSOBSTUDYPortable AP [id number]/01/2021 report onlyFINDINGSHeart size is normal with sternal wires and multi chamber pacemaker. The lungs and pleural spaces are clear. There is no evidence for CHF or pneumonia.IMPRESSIONNo acute chest findings.Electronically signed by: AMY OLGUIN (Dec 01, 2021 15:16:49)
[2021-12-01] MEDS ORDERED: NITROSTAT SL PRN (19:03)
[2021-12-01] MEDS ORDERED: ROXICODONE TAB 5 MG PO PRN (19:08)
[2021-12-01 20:35] LABS: ALBUMIN 2.9 g/dL (3.4-5.0); CALCIUM 7.5 mg/dL (8.5-10.1); CARBON DIOXIDE 29.6 mmol/L (21-32); CKMB % 1.7 % (<4); COR CA(FOR HYPOALB) 8.4 mg/dL (8.5-10.1); CREATINE KINASE MB 2.4 ng/mL (0-4.0); CREATININE 1.7 mg/dL (0.70-1.30); TOTAL PROTEIN 6.1 g/dL (6.4-8.2)
[2021-12-01] MEDS ORDERED: NovoLIN R (or HumuLIN R) SUBCUT PRN (20:38)
[2021-12-01] MEDS: MICRO K EXTEN CAP 10 MEQ PO SCH (20:43)
[2021-12-01] MEDS ORDERED: KLONOPIN TAB 1 MG PO PRN (21:00)
[2021-12-01 21:38] VITALS: BMI 26.2
[2021-12-01] MEDS ORDERED: ZITHROMAX TAB 250 MG PO ONE (22:14)
[2021-12-01] MEDS ORDERED: CHLORASEPTIC SPRAY MT PRN (22:15)
[2021-12-02 01:29] LABS: CKMB % 1.3 % (<4); CREATINE KINASE MB 1.7 ng/mL (0-4.0)
[2021-12-02 05:00] LABS: BASOPHILS % (AUTO) 0.2 % (0.2-1.0); EOSINOPHILS # (AUTO) 0.1 x10^3/uL (0.0-0.2); HEMOGLOBIN 14.2 g/dL (13.5-18.0); LYMPHOCYTES # (AUTO) 0.9 X10^3/uL (1.3-2.9); MEAN CORPUSCULAR HEMOGLOBIN 32.2 pg (27.0-34.0); MEAN CORPUSCULAR HGB CONC 34.7 g/dL (33.0-35.0); MEAN CORPUSCULAR VOLUME 92.8 fL (80.0-100.0); MEAN PLATELET VOLUME 9.3 fL (7.4-11.0); MONOCYTES # (AUTO) 0.7 x10^3/uL (0.3-0.8); MONOCYTES % (AUTO) 10.8 % (0.0-13.0); NEUTROPHILS # (AUTO) 4.6 x10^3/uL (2.2-4.8); RED BLOOD COUNT 4.42 X10^6/uL (4.7-6.0); RED CELL DISTRIBUTION WIDTH 14.2 % (11.6-16.5); WHITE BLOOD COUNT 6.2 X10^3/uL (3.6-10.0)
[2021-12-02 05:31] LABS: ALANINE AMINOTRANSFERASE 24 Units/L (12-78); ALBUMIN 2.8 g/dL (3.4-5.0); ALKALINE PHOSPHATASE 50 Units/L (46-116); ASPARTATE AMINO TRANSFERASE 25 Units/L (15-37); BLOOD UREA NITROGEN 25 mg/dL (7-18); CALCIUM 7.9 mg/dL (8.5-10.1); CARBON DIOXIDE 28.5 mmol/L (21-32); CHLORIDE 99 mmol/L (98-107); CKMB % 1.5 % (<4); COR CA(FOR HYPOALB) 8.9 mg/dL (8.5-10.1); CREATINE KINASE 126 Units/L (39-308); CREATINE KINASE MB 1.9 ng/mL (0-4.0); CREATININE 1.63 mg/dL (0.70-1.30); SODIUM 136 mmol/L (136-145); eGFR NON BLACK RACES 44 (>60)
[2021-12-02] MEDS: GLIMEPIRIDE 1 MG PO SCH ×2 (06:03→08:54)
[2021-12-02] MEDS: MICRO K EXTEN CAP 10 MEQ PO SCH (08:30)
[2021-12-02] MEDS ORDERED: ZITHROMAX TAB 250 MG PO SCH (09:00)
[2021-12-02 10:02] VITALS: BP 95/54
[2021-12-02] MEDS ORDERED: GLIMEPIRIDE 1 MG PO SCH (17:00)
[2021-12-02] MEDS ORDERED: SNACK - Diabetic Appropriate PO SCH (20:00)
--- NOTE | 2021-12-10 15:07 | DR.SSS ---
SHORT STAY SUMMARY Admission Date Date of Admission: 12/01/21 Discharge Date Discharge Date: 12/02/21 Admission Diagnoses Admission Diagnoses: 1. Apnea 2. Pulselessness 3. Vasovagal episode 4. COVID-19 5. Chronic idiopathic thrombocytopenia 6. History of A. fib stable 7. Congestive heart failure stable 8. Hypoxia Discharge Diagnoses Discharge Diagnoses: 1. Apnea 2. Pulselessness resolved 3. Vasovagal episode 4. COVID-19 5. Chronic idiopathic thrombocytopenia 6. History of atrial fibrillation stable 7. Congestive heart failure stable 8. Hypoxia resolved Chief Complaint Chief Complaint: Passed out History of Present Illness History of Present Illness: This is a 76-year-old white male well-known to me. He came to the office complaining of a chest cold and wanted shots of Rocephin and Kenalog in which we gave to him. Afterwards he checked out from the office and got in his vehicle and started to drive off and all of a sudden he felt like he was going to pass out. Before he can make it out of the parking lot he did pass out. He did manage to put the truck in the park before he did. Later on he was found by someone and they had nurses and hospital employees to check him and they found that his pulse was weak and barely palpable so they started CPR on him. EMS was called and they arrived on the scene right thereafter. They brought him to the emergency department for further evaluation and treatment and by the time he got there he was slightly confused but awakening and again talking clear the longer he was there. The patient remained in the ER for a while with a watch him and he did have some hypotension coming in. Patient does tend to have low blood pressure overall they did a COVID test and it was positive. They also put him on oxygen 2 L nasal cannula to maintain her oxygen level. They also found that he had elevated D-dimer and they did a CT scan of the chest but it did not show a PE. He does have a chronic right upper lobe groundglass appearance and some bronchiectasis on the CT scan. He is already been referred in he supposed to see food assembler commiss[employer] kitchen Dr. Randolph as outpatient in the coming days. Past Medical History Past Medical History: Angina, Anxiety, Coronary Artery Disease, Diabetes, Hypertension and CT Past Surgical History Surgical History: CABG/Valve Surgery and Other Allergies Allergies Allergy/AdvReac Type Severity Reaction Status Date / Time No Known Drug Allergies Allergy Verified 05/17/20 06:25 Medications Home Medications: No Known Drug Allergies Allergy (Verified 05/17/20 06:25) CONTINUE taking the following medications bumetanide 2 mg tablet 2 mg PO BID 12/01/21 [History] clonazepam 1 mg tablet 1 mg PO QHS PRN 12/01/21 [History] glimepiride 1 mg tablet 0.5 tab PO BID 12/01/21 [History] nitroglycerin 0.4 mg sublingual tablet 0.4 mg sublingual Q5M PRN 12/01/21 [History] oxycodone 20 mg tablet 1 tab PO BID PRN pain 12/01/21 [History] potassium chloride 10 mEq tablet,extended release 10 meq PO QDAY 12/01/21 [History] tamsulosin 0.4 mg capsule 0.4 mg PO QHS 12/01/21 [History] Family History Family Medical History: Cancer and Coronary Artery Disease Social History Does patient currently use any type of tobacco product: No Have you used tobacco products in the last 12 months: No Type of Tobacco Use: None Alcohol Use: None Drug Use: Prescription Drugs Review of Systems Constitutional: No Symptoms Reported Eyes: No Symptoms Reported ENT: No Symptoms Reported Respiratory: Cough, Shortness of Breath and Sputum Cardiovascular: No Symptoms Reported Gastrointestinal: No Symptoms Reported Genitourinary: No Symptoms Reported Musculoskeletal: No Symptoms Reported Skin: No Symptoms Reported Neurological: Weakness Physical Exam Vital Signs: Last Vital Signs Temp 98.9 F 12/02/21 08:00 Pulse 69 12/02/21 10:00 Resp 20 12/02/21 10:00 BP 95/54 12/02/21 10:00 Pulse Ox 97 12/02/21 10:00 O2 Del Method Nasal Cannula 12/02/21 10:00 O2 Flow Rate 2 12/02/21 10:00 FiO2 28 12/02/21 06:00 Oriented: Normal, Time, Person and Place Eyes: Normal Ear: Normal Nose: Normal Throat: Normal Respiratory: Diminished Throughout Cardiovascular: Normal : Normal Auscultation: Bowel Sounds: Normal Palpation: Normal Tenderness: Normal Skin: Normal Musculoskeletal: Normal Psychiatric: Agitation Mood Description: Calm Affect: Normal Speech Pattern: Clear and Appropriate Labs Labs: Laboratory Last Values WBC 6.2 X10^3/uL (3.6-10.0) 12/02/21 04:12 RBC 4.42 X10^6/uL (4.7-6.0) L 12/02/21 04:12 Hgb 14.2 g/dL (13.5-18.0) 12/02/21 04:12 Hct 41.0 % (42.0-54.0) L 12/02/21 04:12 MCV 92.8 fL (80.0-100.0) 12/02/21 04:12 MCH 32.2 pg (27.0-34.0) 12/02/21 04:12 MCHC 34.7 g/dL (33.0-35.0) 12/02/21 04:12 RDW 14.2 % (11.6-16.5) 12/02/21 04:12 Plt Count 85 X10^3/uL (150.0-450.0) L 12/02/21 04:12 MPV 9.3 fL (7.4-11.0) 12/02/21 04:12 Neut % (Auto) 74.0 % (42.0-75.0) 12/02/21 04:12 Lymph % (Auto) 14.0 % (21.0-51.0) L 12/02/21 04:12 [place] % (Auto) 10.8 % (0.0-13.0) 12/02/21 04:12 Eos % (Auto) 1.0 % (0.9-2.9) 12/02/21 04:12 Baso % (Auto) 0.2 % (0.2-1.0) 12/02/21 04:12 Neut # (Auto) 4.6 x10^3/uL (2.2-4.8) 12/02/21 04:12 Lymph # (Auto) 0.9 X10^3/uL (1.3-2.9) L 12/02/21 04:12 [place] # (Auto) 0.7 x10^3/uL (0.3-0.8) 12/02/21 04:12 Eos # (Auto) 0.1 x10^3/uL (0.0-0.2) 12/02/21 04:12 Baso # (Auto) 0.0 X10^3/uL (0.0-0.1) 12/02/21 04:12 Absolute Nucleated RBC 0.1 /100WBC 12/02/21 04:12 D-Dimer 2.88 ug/ml (0.0-0.57) H* 12/01/21 12:28 Sample Site Rr 12/01/21 12:27 ABG pH 7.370 (7.35-7.45) 12/01/21 12:27 ABG pCO2 49.0 mmHg (35.0-45.0) H 12/01/21 12:27 ABG pO2 70.0 mmHg (80.0-100.0) L 12/01/21 12:27 ABG HCO3 28.3 mmol/L (22-26) H 12/01/21 12:27 ABG O2 Saturation 93.0 % (90-100) 12/01/21 12:27 ABG Base Excess 2.3 mmol/L (-2.0-2.0) H 12/01/21 12:27 Donnie Test Pos 12/01/21 12:27 A-a Gradient 154.0 mmHg 12/01/21 12:27 FiO2 40.0 12/01/21 12:27 Blood Gas Comments Viral well cb 12/01/21 12:27 Sodium 136 mmol/L (136-145) 12/02/21 04:12 Corrected Sodium TNP 12/02/21 04:12 Potassium 3.8 mmol/L (3.5-5.1) 12/02/21 04:12 Chloride 99 mmol/L (98-107) 12/02/21 04:12 Carbon Dioxide 28.5 mmol/L (21-32) 12/02/21 04:12 BUN 25 mg/dL (7-18) H 12/02/21 04:12 Creatinine 1.63 mg/dL (0.70-1.30) H 12/02/21 04:12 Est GFR (MDRD) Af Amer 53 (>60) L 12/02/21 04:12 Est GFR (MDRD) Non-Af 44 (>60) L 12/02/21 04:12 Glucose 54 mg/dL (65-99) L 12/02/21 04:12 POC Glucose (mg/dL) 242 mg/dL (65-99) H 12/02/21 08:30 Calcium 7.9 mg/dL (8.5-10.1) L 12/02/21 04:12 Corrected Calcium 8.9 mg/dL (8.5-10.1) 12/02/21 04:12 Magnesium 2.0 mg/dL (1.7-2.9) 12/01/21 20:02 Total Bilirubin 0.50 mg/dL (0.2-1.0) 12/02/21 04:12 AST 25 Units/L (15-37) 12/02/21 04:12 ALT 24 Units/L (12-78) 12/02/21 04:12 Alkaline Phosphatase 50 Units/L (46-116) 12/02/21 04:12 Creatine Kinase 126 Units/L (39-308) 12/02/21 04:12 CK-MB (CK-2) 1.9 ng/mL (0-4.0) 12/02/21 04:12 CK/CKMB % Calc 1.5 % (<4) 12/02/21 04:12 Troponin I High Sens 27.3 ng/L (4.0-60.0) 12/02/21 04:12 B-Natriuretic Peptide 32.8 pg/mL (0-79) 12/01/21 12:28 Total Protein 6.0 g/dL (6.4-8.2) L 12/02/21 04:12 Albumin 2.8 g/dL (3.4-5.0) L 12/02/21 04:12 Globulin 3.2 g/dL (2.5-4.5) 12/02/21 04:12 Albumin/Globulin Ratio 0.9 Ratio (1.1-2.1) L 12/02/21 04:12 SARS-CoV-2 (PCR) Positive (NEGATIVE) A 12/01/21 12:20 Influenza Type A (PCR) Negative (NEGATIVE) 12/01/21 12:20 Influenza Type B (PCR) Negative (NEGATIVE) 12/01/21 12:20 RSV (PCR) Negative (NEGATIVE) 12/01/21 12:20 S. pyogenes (TEM-PCR) Not detected (NOT DETECT) 12/01/21 12:20 Assessment/Plan (1) Apnea: 1: Monitor on observation status overnight. (2) Vasovagal episode: 1: Monitor overnight on observation status. (3) COVID-19: 1: I will plan on treating the patient with a Z-Vladislav. (4) D-dimer, elevated: 1: Negative PE per CT scan (5) Respiratory distress: 1: Likely secondary to COVID-19 infection and chronic lung problems. (6) CHF (congestive heart failure): 1: Stable no change in treatment (7) Cardiac arrhythmia: 1: Patient has history of atrial fibrillation we will monitor on telemetry overnight. (8) Chronic idiopathic thrombocytopenia: 1: I will discuss sending the patient to hematology for outpatient work-up of his chronic idiopathic thrombocytopenia at his hospital follow-up in a few weeks. Hospital Course Hospital Course: The patient was monitored overnight after admission and he became haughty with the nurses and by the next morning he was ready to go home. He did not seem to be very pleased about being in the hospital overnight. His labs are stable the following morning and that showed a platelet count of 85,000 which are a little lower than what he normally runs. He does normally run slightly low with his platelet counts. His creatinine was 1.63 which is normal baseline for him. He has medication which I had prescribed him from office today before is ready for him to picker/puller at the pharmacy for his respiratory infection secondary to COVID- 19. He will be discharged home in stable condition. He will be following up with myself as a hospital follow-up within 1 to 2 weeks. He also has an appointment established already with [facility], Dr. Randolph here in [place], [place]. Discharge Medications Discharge Medications: Home Medication List bumetanide 2 mg tablet 2 mg PO BID 12/01/21 [History] clonazepam 1 mg tablet 1 mg PO QHS PRN 12/01/21 [History] glimepiride 1 mg tablet 0.5 tab PO BID 12/01/21 [History] nitroglycerin 0.4 mg sublingual tablet 0.4 mg sublingual Q5M PRN 12/01/21 [History] oxycodone 20 mg tablet 1 tab PO BID PRN pain 12/01/21 [History] potassium chloride 10 mEq tablet,extended release 10 meq PO QDAY 12/01/21 [History] tamsulosin 0.4 mg capsule 0.4 mg PO QHS 12/01/21 [History] Prescriptions: Discharge Plan Discharge Plan Patient Disposition: HOME, SELF-CARE Condition: Stable Health Concerns: Post Hospitalization: new medications and changes needed to prevent readmission or further decline. Pt educated and given instructions on all concerns. Care Plan Goals: Problem: Cardiac Complications Goal: Early Recognition of cardiac complications for prompt intervention Instructions: Follow provided instructions. Follow up with primary physician as directed. Contact primary care physician or report to the closest Emergency Room if condition worsens. Plan of Treatment: Continue with present treatment and follow up plan. Pt is to keep follow up appointment as instructed and take medications as ordered. Prescriptions: Continued temazepam 30 MG capsule 30 mg PO HS PRN (Reason: Insomnia) bumetanide 2 mg Tablet 2 mg PO BID clonazepam 1 mg Tablet 1 mg PO QHS PRN Rx Instructions: administer 30 minutes before bedtime potassium chloride 10 mEq Tablet Extended Release 10 meq PO QDAY glimepiride 1 mg tablet 0.5 tab PO BID tamsulosin 0.4 mg Capsule 0.4 mg PO QHS nitroglycerin 0.4 mg Tablet, Sublingual 0.4 mg SUBLINGUAL Q5M PRN Rx Instructions: do not exceed 3 doses per episode oxycodone 20 mg tablet 1 tab PO BID PRN (Reason: pain) Orders to Discharge Patient Discharge Orders: Discharge (Routine); Ordered 12/02/21 Ordered By: CHANTELLE FORDE Follow ups/Referrals Follow ups/Referrals: CHANTELLE FORDE [Primary Care Provider] - 12/11/21 10:00 am Instructions Instructions: COVID-19, Heart Failure, Self Care, [id number], 10 Things You Can Do to Manage Your COVID-19 Symptoms at Home - [facility] (11/28/2019), COVID-19: How to Protect Yourself and Others - CDC, Type 2 Diabetes Mellitus, Self-Care, Adult, [id number], COVID-19: Quarantine vs. Isolation - [facility] (05/15/2020) Activity Restrictions/Additional Instructions: Continue current home medications and take Levaquin and Medrol dose pack as pre scribed yesterday. Stand Alone Forms: Precautions for COVID19, [facility], Patient Portal, Social Distancing Patient Education Addl Reference Links: 10 Things You Can Do to Manage Your COVID-19 Symptoms at Home [email or web address] [email or web address].dn=Male&age.v.v= 76&age.v.u=a&performer=PROV&informationRecipient=PAT&performer.languageCode.c=en &mainSearchCriteria.v.dn=COVID&z=[id number] Addl Reference Text: Pt. was seen as an out-patient in Dr. Forde's office yesterday, 12/01/21. He was prescribed Levaquin and a Medrol dose pack. Dr. Forde instructed Mr. Yee to get those prescriptions filled and start taking those today.
== END 2021-12-02 10:25 | disposition home or self-care (01) ==
LOC: ER 12:14 → ICU 12:14
PROVIDERS: ADMIT Family Medicine; ATTEND Family Medicine
DX: D69.3 Immune thrombocytopenic purpura; R06.81 Apnea, not elsewhere classified; R79.1 Abnormal coagulation profile; I10 Essential (primary) hypertension; U07.1 COVID-19; F41.8 Other specified anxiety disorders; I25.10 Atherosclerotic heart disease of native coronary artery without angina pectoris; E11.65 Type 2 diabetes mellitus with hyperglycemia; I48.91 Unspecified atrial fibrillation; R55 Syncope and collapse; R94.4 Abnormal results of kidney function studies; R06.02 Shortness of breath; R94.31 Abnormal electrocardiogram [ECG] [EKG]; R79.89 Other specified abnormal findings of blood chemistry; I50.43 Acute on chronic combined systolic (congestive) and diastolic (congestive) heart failure; Z86.73 Personal history of transient ischemic attack (TIA), and cerebral infarction without residual deficits; I95.89 Other hypotension; I49.9 Cardiac arrhythmia, unspecified; E87.1 Hypo-osmolality and hyponatremia

== ENCOUNTER 2024-11-17 21:25 | Observation (INO) ==
--- NOTE | 2024-11-17 22:38 | DR.N/VMALE ---
HPI Time Seen Time Seen by Provider: 11/17/24 22:38 Primary Care Physician Primary Care Physician: OFELIA Complaints Chief Complaint:: PT AMBULATORY IN ED WITH COMPLAINTS OF UPPER ABD PAIN X2 DAYS, WITH VOMITING STATES HE JUST FEELS FULL THOUGHT MAYBE CONSTIPATED TOOK A LAX HAS NOW HAD MULTIPLE LOOSE BMS. ALSO REPORTS HAS BEEN HAVING GALLBLADDER TROUBLES HAS A FOLLOW UP APPT WITH [facility] FOR TUESDAY. COVID-19 Coronavirus risk:travel/contact w/high risk person: No Has patient experienced Coronavirus symptoms: No Source History Provided: Patient Mode of Arrival Mode of Arrival: Ambulatory Timing Onset of Chief Complaint: 11/16/24 PMH PMH Past Medical History: Yes Past Medical History: Diabetes, Hypertension and [place] Past Surgical History: Yes Surgical History: CABG/Valve Surgery and Ortho Surgery Family History History of Family Medical Conditions: Yes Family Medical History: Cancer and Coronary Artery Disease Social History Do you use any recreational Drugs:: No Travel Risk Coronavirus risk:travel/contact w/high risk person: No Has patient experienced Coronavirus symptoms: No Infectious screening Have you traveled outside the country in the last 6 months?: No Isolation: Standard PE Vital Signs Vitals: Vital Signs Temperature 98.0 F Pulse Rate 85 Respiratory Rate 20 Respiratory Rate 20 Respiratory Rate 20 Blood Pressure 152/93 O2 Sat by Pulse Oximetry 99 ROR Labs Reviewed 11/19/24 04:33 11/18/24 04:59 Laboratory: WBC 5.5 X10^3/uL (3.6-10.0) 11/17/24 22:47 RBC 3.74 X10^6/uL (4.7-6.0) L 11/17/24 22:47 Hgb 12.1 g/dL (13.5-18.0) L 11/17/24 22:47 Hct 35.4 % (42.0-54.0) L 11/17/24 22:47 MCV 94.8 fL (80.0-100.0) 11/17/24 22:47 MCH 32.4 pg (27.0-34.0) 11/17/24 22:47 MCHC 34.2 g/dL (33.0-35.0) 11/17/24 22:47 RDW 13.8 % (11.6-16.5) 11/17/24 22:47 Plt Count 89 X10^3/uL (150.0-450.0) L 11/17/24 22:47 MPV 9.5 fL (7.4-11.0) 11/17/24 22:47 Neut % (Auto) 63.8 % (42.0-75.0) 11/17/24 22:47 Lymph % (Auto) 19.6 % (21.0-51.0) L 11/17/24 22:47 Bell % (Auto) 13.3 % (0.0-13.0) H 11/17/24 22:47 Eos % (Auto) 1.8 % (0.9-2.9) 11/17/24 22:47 Baso % (Auto) 1.5 % (0.2-1.0) H 11/17/24 22:47 Neut # (Auto) 3.5 x10^3/uL (2.2-4.8) 11/17/24 22:47 Lymph # (Auto) 1.1 X10^3/uL (1.3-2.9) L 11/17/24 22:47 Bell # (Auto) 0.7 x10^3/uL (0.3-0.8) 11/17/24 22:47 Eos # (Auto) 0.1 x10^3/uL (0.0-0.2) 11/17/24 22:47 Baso # (Auto) 0.1 X10^3/uL (0.0-0.1) 11/17/24 22:47 Absolute Nucleated RBC 0.1 /100WBC 11/17/24 22:47 Sodium 140 mmol/L (136-145) 11/17/24 22:47 Corrected Sodium TNP 11/17/24 22:47 Potassium 4.6 mmol/L (3.5-5.1) 11/17/24 22:47 Chloride 106 mmol/L (98-107) 11/17/24 22:47 Carbon Dioxide 24.1 mmol/L (21-32) 11/17/24 22:47 BUN 21 mg/dL (7-18) H 11/17/24 22:47 Creatinine 1.49 mg/dL (0.70-1.30) H 11/17/24 22:47 Est GFR (MDRD) Af Amer 58 (>60) L 11/17/24 22:47 Est GFR (MDRD) Non-Af 48 (>60) L 11/17/24 22:47 Glucose 79 mg/dL (65-99) 11/17/24 22:47 Calcium 8.5 mg/dL (8.5-10.1) 11/17/24 22:47 Corrected Calcium TNP 11/17/24 22:47 Total Bilirubin 1.10 mg/dL (0.2-1.0) H 11/17/24 22:47 AST 31 Units/L (15-37) 11/17/24 22:47 ALT 36 Units/L (12-78) 11/17/24 22:47 Alkaline Phosphatase 90 Units/L (46-116) 11/17/24 22:47 B-Natriuretic Peptide 393 pg/mL (0-79) H 11/17/24 22:47 Total Protein 7.4 g/dL (6.4-8.2) 11/17/24 22:47 Albumin 3.8 g/dL (3.4-5.0) 11/17/24 22:47 Globulin 3.6 g/dL (2.5-4.5) 11/17/24 22:47 Albumin/Globulin Ratio 1.1 Ratio (1.1-2.1) 11/17/24 22:47 Amylase 22 Units/L (25-115) L 11/17/24 22:47 Lipase 13 Units/L (16-77) L 11/17/24 22:47 Opioid Opioid Risk Tool Age (Scottie box if 16-45): No History of Preadolescent Sexual Abuse: No Total: 0 Total Score Risk Category: Low Risk Copyright: Darian VARNER predicting aberrant behaviors Discharge Plan Diagnosis Discharge Problem: Cholelithiasis Qualifiers: Cholelithiasis location: gallbladder Cholecystitis presence: without cholecystitis Biliary obstruction: without biliary obstruction Qualified Code(s): K80.20 - Calculus of gallbladder without cholecystitis without obstruction Discharge Plan Patient Disposition: ADMITTED INPATIENT Condition: Stable Orders to Discharge Patient Discharge Orders: Discharge (Routine); Ordered 11/19/24 Ordered By: Rolo Montoya
--- NOTE | 2024-11-17 22:43 | CT ---
CT ABDOMEN AND PELVIS WITHOUT CONTRAST HISTORY: Abdominal pain COMPARISON: 05/17/2020 TECHNIQUE: Axial images were obtained of the abdomen and pelvis without IV contrast. Sagittal and coronal reformatted images were provided. All images were reviewed in a variety of windows and levels. RADIATION REDUCTION TECHNIQUE: Automated exposure control, adjustment of the mA or kV according to patient size, or iterative reconstruction techniques were used. FINDINGS: Please note that lack of IV contrast does limit evaluation of the soft tissues and vascular detail. The visualized lower lung zones demonstrates small bilateral pleural effusions. The heart size is enlarged. There is no evidence of a pericardial effusion. The liver, spleen, pancreas, adrenal glands, and kidneys are grossly unremarkable. Gallstones are present which measures up to 32 mm in diameter with findings suggesting pericholecystic fluid and gallbladder wall edema. Free fluid is noted around the liver. This may represent acute gallbladder disease. There is no evidence of stones or signs of obstructive uropathy. The stomach, small bowel, and colon are grossly unremarkable. A few scattered diverticula are seen without evidence of diverticulitis. There are no inflammatory changes in the right lower quadrant to suggest secondary signs of acute appendicitis. The appendix is not visualized on this exam. There is no evidence of retroperitoneal or mesenteric lymphadenopathy. The visualized bones demonstrate degenerative changes. There are no concerning lytic or blastic lesions identified. Status post fusion at the L4-L5 level. IMPRESSION: 1. The visualized lower lung zones demonstrates small bilateral pleural effusions. 2. The heart size is enlarged. 3. Gallstones are present which measures up to 32 mm in diameter with findings suggesting pericholecystic fluid and gallbladder wall edema. Free fluid is noted around the liver. This may represent acute gallbladder disease. 4. Status post fusion at the L4-L5 level. THIS IS AN ELECTRONICALLY VERIFIED FINAL REPORT 11/17/2024 10:40 PM - Electronically signed by Eric Scherer MD
[2024-11-17] MEDS: NS 1,000 ML IV 1,000 ML IV SCH (22:50)
[2024-11-17 23:03] LABS: BASOPHILS # (AUTO) 0.1 X10^3/uL (0.0-0.1); BASOPHILS % (AUTO) 1.5 % (0.2-1.0); EOSINOPHILS # (AUTO) 0.1 x10^3/uL (0.0-0.2); EOSINOPHILS % (AUTO) 1.8 % (0.9-2.9); HEMATOCRIT 35.4 % (42.0-54.0); HEMOGLOBIN 12.1 g/dL (13.5-18.0); LYMPHOCYTES # (AUTO) 1.1 X10^3/uL (1.3-2.9); LYMPHOCYTES % (AUTO) 19.6 % (21.0-51.0); MEAN CORPUSCULAR HEMOGLOBIN 32.4 pg (27.0-34.0); MEAN CORPUSCULAR HGB CONC 34.2 g/dL (33.0-35.0); MEAN CORPUSCULAR VOLUME 94.8 fL (80.0-100.0); MEAN PLATELET VOLUME 9.5 fL (7.4-11.0); MONOCYTES # (AUTO) 0.7 x10^3/uL (0.3-0.8); MONOCYTES % (AUTO) 13.3 % (0.0-13.0); NEUTROPHILS # (AUTO) 3.5 x10^3/uL (2.2-4.8); NEUTROPHILS % (AUTO) 63.8 % (42.0-75.0); PLATELET COUNT 89 X10^3/uL (150.0-450.0); RED BLOOD COUNT 3.74 X10^6/uL (4.7-6.0); RED CELL DISTRIBUTION WIDTH 13.8 % (11.6-16.5); WHITE BLOOD COUNT 5.5 X10^3/uL (3.6-10.0)
[2024-11-17 23:12] LABS: ALANINE AMINOTRANSFERASE 36 Units/L (12-78); ALBUMIN 3.8 g/dL (3.4-5.0); ALKALINE PHOSPHATASE 90 Units/L (46-116); AMYLASE 22 Units/L (25-115); ASPARTATE AMINO TRANSFERASE 31 Units/L (15-37); BLOOD UREA NITROGEN 21 mg/dL (7-18); CALCIUM 8.5 mg/dL (8.5-10.1); CARBON DIOXIDE 24.1 mmol/L (21-32); CHLORIDE 106 mmol/L (98-107); CREATININE 1.49 mg/dL (0.70-1.30); GLUCOSE 79 mg/dL (65-99); LIPASE 13 Units/L (16-77); POTASSIUM 4.6 mmol/L (3.5-5.1); SODIUM 140 mmol/L (136-145); TOTAL PROTEIN 7.4 g/dL (6.4-8.2); eGFR NON BLACK RACES 48 (>60)
[2024-11-17] MEDS: ROXICODONE TAB 15 MG PO ONE (23:46)
[2024-11-17] MEDS: ROXICODONE TAB 5 MG PO ONE (23:47)
[2024-11-18] MEDS: CIPRO IV 400 MG PREMIX* 400 MG/200 ML IV.SOLN. IV ONE ×2 (00:30→12:40)
[2024-11-18] MEDS ORDERED: XYLOCAINE 2 % (PLAIN) ONE (01:08)
[2024-11-18] MEDS ORDERED: ULTANE GAS IN ONE (01:08)
[2024-11-18] MEDS: ZOFRAN INJ 4 MG VIAL IVP ONE (01:19)
[2024-11-18] MEDS ORDERED: ZOFRAN INJ 4 MG VIAL IVP PRN ×2 (01:20→11:38)
[2024-11-18] MEDS ORDERED: DILAUDID INJ IVP PRN ×2 (01:32→11:38)
[2024-11-18] MEDS ORDERED: LIORESAL PO PRN (01:32)
[2024-11-18] MEDS ORDERED: NITROSTAT SL PRN (01:32)
[2024-11-18] MEDS ORDERED: ALPRAZOLAM ODT PO PRN (01:47)
[2024-11-18 02:59] VITALS: BMI 27.8
[2024-11-18] MEDS: COREG TAB 6.25 MG PO SCH (03:20)
[2024-11-18] MEDS ORDERED: NovoLIN R (or HumuLIN R) SUBCUT PRN (03:52)
[2024-11-18] MEDS: D50W ABBOJECT SYR IV ONE ×2 (05:21→12:41)
[2024-11-18 05:53] LABS: BASOPHILS % (AUTO) 0.2 % (0.2-1.0); EOSINOPHILS # (AUTO) 0.1 x10^3/uL (0.0-0.2); EOSINOPHILS % (AUTO) 1.4 % (0.9-2.9); HEMATOCRIT 34.3 % (42.0-54.0); HEMOGLOBIN 11.9 g/dL (13.5-18.0); LYMPHOCYTES % (AUTO) 22.1 % (21.0-51.0); MEAN CORPUSCULAR HEMOGLOBIN 32.7 pg (27.0-34.0); MEAN CORPUSCULAR HGB CONC 34.7 g/dL (33.0-35.0); MEAN CORPUSCULAR VOLUME 94.3 fL (80.0-100.0); MEAN PLATELET VOLUME 10.3 fL (7.4-11.0); MONOCYTES # (AUTO) 0.6 x10^3/uL (0.3-0.8); MONOCYTES % (AUTO) 14.5 % (0.0-13.0); NEUTROPHILS # (AUTO) 2.7 x10^3/uL (2.2-4.8); NEUTROPHILS % (AUTO) 61.8 % (42.0-75.0); PLATELET COUNT 90 X10^3/uL (150.0-450.0); RED BLOOD COUNT 3.64 X10^6/uL (4.7-6.0); RED CELL DISTRIBUTION WIDTH 13.8 % (11.6-16.5); WHITE BLOOD COUNT 4.4 X10^3/uL (3.6-10.0)
[2024-11-18 06:12] LABS: ALANINE AMINOTRANSFERASE 29 Units/L (12-78); ALBUMIN 3.3 g/dL (3.4-5.0); ALKALINE PHOSPHATASE 79 Units/L (46-116); ASPARTATE AMINO TRANSFERASE 31 Units/L (15-37); BLOOD UREA NITROGEN 20 mg/dL (7-18); CALCIUM 8.1 mg/dL (8.5-10.1); CARBON DIOXIDE 19.4 mmol/L (21-32); CHLORIDE 108 mmol/L (98-107); COR CA(FOR HYPOALB) 8.7 mg/dL (8.5-10.1); CREATININE 1.35 mg/dL (0.70-1.30); GLUCOSE 54 mg/dL (65-99); POTASSIUM 4.6 mmol/L (3.5-5.1); SODIUM 141 mmol/L (136-145); TOTAL PROTEIN 6.8 g/dL (6.4-8.2); eGFR NON BLACK RACES 54 (>60)
[2024-11-18] MEDS ORDERED: TYLENOL 325 MG TAB PO PRN (07:37)
[2024-11-18] MEDS: ZOFRAN INJ 4 MG VIAL IVP PRN ×2 (08:31→10:42)
[2024-11-18] MEDS ORDERED: CIPRO IV 400 MG PREMIX* 400 MG/200 ML IV.SOLN. IV SCH (09:00)
[2024-11-18] MEDS: OFIRMEV IV 1000 MG VIAL 1,000 MG/100 ML VIAL IV ONE (10:20)
[2024-11-18] MEDS: ZEMURON 100 MG VIAL ONE (10:20)
[2024-11-18] MEDS: ZOFRAN INJ 4 MG VIAL ONE (10:20)
[2024-11-18] MEDS: DIPRIVAN VIAL 20 ML ONE (10:20)
[2024-11-18] MEDS: BRIDION ONE (10:20)
[2024-11-18] MEDS: FENTANYL VIAL INJ 100 mcg ONE (10:21)
[2024-11-18] MEDS: KETAMINE HCL ONE (10:21)
[2024-11-18] MEDS: VERSED ONE (10:21)
--- NOTE | 2024-11-18 10:21 | DR.H&P ---
H&P History & Physical for Day of: H&P Date: 11/18/24 Chief Complaint Chief Complaint: Nausea, vomiting, right upper quadrant pain, known to have gallstones History of Present Illness History of Present Illness: This is an 79-year-old male with intermittent abdominal pain to the last several weeks with ultrasound showing gallstones and was referred to Dr. Valadez at the clinic to be seen this coming . However he presented with acute right upper quadrant pain which is unrelenting and nausea and vomiting. Evaluated in the emergency room and CT scan consistent with cholelithiasis and pericholecystic fluid consistent with cholecystitis. Patient's past history of coronary bypass grafting in 2013. He also has a pacemaker /defibrillator in place. He is followed routinely by cardiology and has had no other significant symptoms of his heart or chest pain since then. He is also diabetic Past Medical History Past Medical History: Diabetes, Hypertension and [place] Past Surgical History Surgical History: CABG/Valve Surgery and Ortho Surgery Family History Family Medical History: Heart Failure Social History Does patient currently use any type of tobacco product: No Does any household member use tobacco: No Alcohol Use: None Drug Use: None Medications Home Medications: Home Medications Medication Instructions Recorded Confirmed Type apixaban 5 mg tablet (Eliquis) 5 mg PO BID 07/05/24 History isosorbide dinitrate 5 mg tablet 2.5 mg PO BID 5 11/17/24 History alprazolam 0.5 mg tablet 0.5 mg PO QDAY PRN Anxiety 0 11/13/24 11/17/24 History nervousness bumetanide 2 mg tablet 2 mg PO BID 11/13/24 5 History carvedilol 6.25 mg tablet 9.375 mg PO Q12H 11/13/24 History glimepiride 1 mg tablet 1.5 mg PO BID 11/13/2411/17 History Allergies Allergies Allergy/AdvReac Type Severity Reaction Status Date / Time No Known Drug Allergies Allergy Unknown Verified 11/17/24 21:46 Labs 11/18/24 04:59 11/18/24 04:59 Labs: Laboratory WBC 4.4 X10^3/uL (3.6-10.0) 11/18/24 04:59 RBC 3.64 X10^6/uL (4.7-6.0) L 11/18/24 04:59 Hgb 11.9 g/dL (13.5-18.0) L 11/18/24 04:59 Hct 34.3 % (42.0-54.0) L 11/18/24 04:59 MCV 94.3 fL (80.0-100.0) 11/18/24 04:59 MCH 32.7 pg (27.0-34.0) 11/18/24 04:59 MCHC 34.7 g/dL (33.0-35.0) 11/18/24 04:59 RDW 13.8 % (11.6-16.5) 11/18/24 04:59 Plt Count 90 X10^3/uL (150.0-450.0) L 11/18/24 04:59 MPV 10.3 fL (7.4-11.0) 11/18/24 04:59 Neut % (Auto) 61.8 % (42.0-75.0) 11/18/24 04:59 Lymph % (Auto) 22.1 % (21.0-51.0) 11/18/24 04:59 Petroleum % (Auto) 14.5 % (0.0-13.0) H 11/18/24 04:59 Eos % (Auto) 1.4 % (0.9-2.9) 11/18/24 04:59 Baso % (Auto) 0.2 % (0.2-1.0) 11/18/24 04:59 Neut # (Auto) 2.7 x10^3/uL (2.2-4.8) 11/18/24 04:59 Lymph # (Auto) 1.0 X10^3/uL (1.3-2.9) L 11/18/24 04:59 Petroleum # (Auto) 0.6 x10^3/uL (0.3-0.8) 11/18/24 04:59 Eos # (Auto) 0.1 x10^3/uL (0.0-0.2) 11/18/24 04:59 Baso # (Auto) 0.0 X10^3/uL (0.0-0.1) 11/18/24 04:59 Absolute Nucleated RBC 0.2 /100WBC 11/18/24 04:59 Sodium 141 mmol/L (136-145) 11/18/24 04:59 Corrected Sodium TNP 11/18/24 04:59 Potassium 4.6 mmol/L (3.5-5.1) 11/18/24 04:59 Chloride 108 mmol/L (98-107) H 11/18/24 04:59 Carbon Dioxide 19.4 mmol/L (21-32) L 11/18/24 04:59 BUN 20 mg/dL (7-18) H 11/18/24 04:59 Creatinine 1.35 mg/dL (0.70-1.30) H 11/18/24 04:59 Est GFR (MDRD) Af Amer > 60 (>60) 11/18/24 04:59 Est GFR (MDRD) Non-Af 54 (>60) L 11/18/24 04:59 Glucose 54 mg/dL (65-99) L 11/18/24 04:59 POC Glucose (mg/dL) 76 mg/dL (65-99) 11/18/24 07:47 Calcium 8.1 mg/dL (8.5-10.1) L 11/18/24 04:59 Corrected Calcium 8.7 mg/dL (8.5-10.1) 11/18/24 04:59 Total Bilirubin 1.10 mg/dL (0.2-1.0) H 11/18/24 04:59 AST 31 Units/L (15-37) 11/18/24 04:59 ALT 29 Units/L (12-78) 11/18/24 04:59 Alkaline Phosphatase 79 Units/L (46-116) 11/18/24 04:59 B-Natriuretic Peptide 393 pg/mL (0-79) H 11/17/24 22:47 Total Protein 6.8 g/dL (6.4-8.2) 11/18/24 04:59 Albumin 3.3 g/dL (3.4-5.0) L 11/18/24 04:59 Globulin 3.5 g/dL (2.5-4.5) 11/18/24 04:59 Albumin/Globulin Ratio 0.9 Ratio (1.1-2.1) L 11/18/24 04:59 Amylase 22 Units/L (25-115) L 11/17/24 22:47 Lipase 13 Units/L (16-77) L 11/17/24 22:47 Review of Systems Constitutional: See HPI Eyes: No Symptoms Reported ENT: No Symptoms Reported Respiratory: No Symptoms Reported Cardiovascular: No Symptoms Reported Gastrointestinal: See HPI Genitourinary: No Symptoms Reported Musculoskeletal: No Symptoms Reported Skin: No Symptoms Reported Neurological: No Symptoms Reported Physical Exam Vital Signs: Vital Signs Temperature 97.5 F Temperature 97.9 F Pulse Rate [Right Brachial] 75 Pulse Rate [Right Brachial] 71 Respiratory Rate 17 Respiratory Rate 19 Blood Pressure [Right Arm] 130/85 Blood Pressure [Right Arm] 138/90 O2 Sat by Pulse Oximetry 98 O2 Sat by Pulse Oximetry 98 Oriented: Normal, Time, Person and Place Eyes: Normal Ear: Normal Nose: Normal Throat: Normal Respiratory: Clear Throughout Cardiovascular: Normal (Normal rate and rhythm but as a paced rhythm based on EKG from October 29.) : Normal Auscultation: Bowel Sounds: Normal Palpation: Normal Tenderness: RUQ (mild rebound ) Skin: Normal Musculoskeletal: Normal Psychiatric: Normal Mood Description: Calm Affect: Normal Speech Pattern: Clear and Appropriate Assessment/Plan (1) Cholelithiasis with cholecystitis: Status: Acute Plan: Evidence of gallstones and significant pericholecystic fluid consistent with acute cholecystitis. Plan is for laparoscopic cholecystectomy. I discussed procedure with the patient including risk and benefits including the possibility of converting to an open procedure. Also discussed the small risk of bile duct injury. He understands and agrees to proceed. (2) Cardiomyopathy: Qualifiers: Cardiomyopathy type: unspecified Qualified Code(s): I42.9 - Cardiomyopathy, unspecified Status: Chronic Plan: Patient has pacemaker defibrillator in place. Patient on Eliquis. Does increase the risk somewhat of bleeding but will be excepted. (3) Hyperlipidemia: Status: Acute Plan: Home medications (4) Diabetes mellitus type 2 in nonobese: Status: Chronic Plan: Sliding-scale insulin (5) Past history of myocardial infarction: Status: Acute Plan: CABG 2013. Followed regular by cardiology and has no significant complaints
[2024-11-18] MEDS: PEPCID 20 MG VIAL ONE (10:29)
[2024-11-18] MEDS: PEPCID 20 MG VIAL IVP PRN (10:42)
[2024-11-18] MEDS: ANCEF VIAL 1 GRAM ONE (10:45)
[2024-11-18] MEDS: VERSED IVP PRN (10:45)
[2024-11-18] MEDS: ANCEF VIAL 1 GRAM IV PRN (10:45)
[2024-11-18] MEDS: NS 1,000 ML IV 700 ML IV PRN (10:45)
[2024-11-18] MEDS: NS 100 ML IV 100 ML ONE (10:45)
[2024-11-18] MEDS: NS 1,000 ML IV 1,000 ML ONE ×2 (10:45→13:52)
[2024-11-18] MEDS: DECADRON INJ ONE (10:51)
[2024-11-18] MEDS: ZEMURON 100 MG VIAL IVP PRN (10:54)
[2024-11-18] MEDS: XYLOCAINE 2 % (PLAIN) INJ PRN (10:54)
[2024-11-18] MEDS: KETAMINE HCL IV PRN (10:54)
[2024-11-18] MEDS: DIPRIVAN VIAL 150 ML IVP PRN (10:54)
[2024-11-18] MEDS: FENTANYL VIAL INJ 100 mcg IVP PRN (10:54)
[2024-11-18] MEDS: DECADRON INJ IVP PRN (11:00)
[2024-11-18] MEDS: MARCAINE 0.5% ONE (11:06)
[2024-11-18] MEDS: OFIRMEV IV 1000 MG VIAL 1,000 MG/100 ML VIAL IV PRN (11:09)
[2024-11-18] MEDS: PRECEDEX INJ VIAL ONE (11:16)
[2024-11-18] MEDS: DILAUDID INJ IVP PRN ×2 (11:23→13:58)
[2024-11-18] MEDS: PRECEDEX INJ VIAL IVP PRN (11:31)
[2024-11-18] MEDS ORDERED: BARHEMSYS INJ IVP PRN (11:38)
[2024-11-18] MEDS ORDERED: BENADRYL INJ 50 MG VIAL IVP PRN (11:38)
[2024-11-18] MEDS: EPHEDRINE SULFATE INJ IVP PRN (11:45)
[2024-11-18] MEDS: BRIDION IVP PRN (12:00)
[2024-11-18] MEDS: DANTRIUM IV PRN (12:00)
--- NOTE | 2024-11-18 12:09 | OR.IMMED ---
IMMEDIATE POST-OP NOTE Immediate Post-Op Note Date of surgery/procedure: 11/18/24 Pre-Op Diagnosis: Cholelithiasis and cholecystitis Post-Op Diagnosis: Same, very large gallbladder stone approximate 4 cm x 3 cm completely taking of the gallbladder making it difficult to grasp Procedure: Laparoscopic cholecystectomy, see findings below Description of Procedure: Dictated Surgeon/Hired Hand: José Luis Montoya MD, FACS Findings: Gallbladder completely distended with 1 large gallstone. Nothing to really to aspirate. Consistent with acute cholecystitis. Required me to open the gallbladder to remove this large stone but still could identify the cystic duct and cystic artery which were clipped proximal and distally and divided. Patient has been on Eliquis. Patient has history of pacemaker defibrillator in place. Blood loss 500 cc. Drain placed. Patient will be monitored in the PACU first for going to the CCU. Will obtain CBC in the PACU Estimated Blood Loss: 550 cc, mostly from venous sinusoids of the liver Drains: Tank Huitron (Flat #10 Tank-Huitron drain) Complications: None ,but this was a difficult case Progress Notes: To PACU, check CBC. then to critical care unit.
[2024-11-18 12:32] LABS: BASOPHILS % (AUTO) 0.8 % (0.2-1.0); EOSINOPHILS % (AUTO) 0.8 % (0.9-2.9); HEMATOCRIT 30.1 % (42.0-54.0); HEMOGLOBIN 10.2 g/dL (13.5-18.0); LYMPHOCYTES # (AUTO) 0.7 X10^3/uL (1.3-2.9); LYMPHOCYTES % (AUTO) 14.3 % (21.0-51.0); MEAN CORPUSCULAR HEMOGLOBIN 32.4 pg (27.0-34.0); MEAN CORPUSCULAR HGB CONC 34.1 g/dL (33.0-35.0); MEAN PLATELET VOLUME 9.1 fL (7.4-11.0); MONOCYTES # (AUTO) 0.3 x10^3/uL (0.3-0.8); MONOCYTES % (AUTO) 6.5 % (0.0-13.0); NEUTROPHILS % (AUTO) 77.6 % (42.0-75.0); PLATELET COUNT 90 X10^3/uL (150.0-450.0); RED BLOOD COUNT 3.16 X10^6/uL (4.7-6.0); RED CELL DISTRIBUTION WIDTH 14.2 % (11.6-16.5); WHITE BLOOD COUNT 5.2 X10^3/uL (3.6-10.0)
[2024-11-18] MEDS: GLIMEPIRIDE 1 MG PO SCH (12:40)
[2024-11-18] MEDS: DILAUDID INJ ONE ×2 (13:50→13:54)
[2024-11-18] MEDS: AQUA-MEPHYTON ADULT INJ ONE (13:51)
[2024-11-18] MEDS: EPHEDRINE SULFATE INJ ONE (13:52)
[2024-11-18] MEDS: LR 1,000 ML IV 1,000 ML IV SCH (13:54)
[2024-11-18 17:22] LABS: HEMOGLOBIN 10.4 g/dL (13.5-18.0); MEAN PLATELET VOLUME 9.1 fL (7.4-11.0); MONOCYTES # (AUTO) 0.3 x10^3/uL (0.3-0.8); PLATELET COUNT 82 X10^3/uL (150.0-450.0); WHITE BLOOD COUNT 7.7 X10^3/uL (3.6-10.0)
[2024-11-18 17:27] LABS: BASOPHILS % (AUTO) 0.1 % (0.2-1.0); HEMATOCRIT 30.3 % (42.0-54.0); LYMPHOCYTES # (AUTO) 0.4 X10^3/uL (1.3-2.9); LYMPHOCYTES % (AUTO) 4.7 % (21.0-51.0); MEAN CORPUSCULAR HEMOGLOBIN 32.7 pg (27.0-34.0); MEAN CORPUSCULAR HGB CONC 34.3 g/dL (33.0-35.0); MEAN CORPUSCULAR VOLUME 95.1 fL (80.0-100.0); NEUTROPHILS % (AUTO) 91.2 % (42.0-75.0); RED BLOOD COUNT 3.18 X10^6/uL (4.7-6.0); RED CELL DISTRIBUTION WIDTH 13.6 % (11.6-16.5)
[2024-11-18 17:45] LABS: PLATELET MORPHOLOGY COMMENT NORMAL (NORMAL)
[2024-11-18] MEDS: SNACK - Diabetic Appropriate PO SCH (20:25)
[2024-11-18] MEDS: CIPRO TAB 500 MG PO SCH (21:11)
[2024-11-18] MEDS: BUMEX TAB 1 MG PO SCH (21:11)
[2024-11-19 05:14] LABS: BASOPHILS % (AUTO) 0.1 % (0.2-1.0); HEMATOCRIT 28.4 % (42.0-54.0); HEMOGLOBIN 9.7 g/dL (13.5-18.0); LYMPHOCYTES # (AUTO) 0.6 X10^3/uL (1.3-2.9); LYMPHOCYTES % (AUTO) 8.1 % (21.0-51.0); MEAN CORPUSCULAR HEMOGLOBIN 32.3 pg (27.0-34.0); MEAN CORPUSCULAR HGB CONC 34.1 g/dL (33.0-35.0); MEAN CORPUSCULAR VOLUME 94.6 fL (80.0-100.0); MEAN PLATELET VOLUME 9.6 fL (7.4-11.0); MONOCYTES # (AUTO) 0.7 x10^3/uL (0.3-0.8); MONOCYTES % (AUTO) 10.6 % (0.0-13.0); NEUTROPHILS # (AUTO) 5.7 x10^3/uL (2.2-4.8); NEUTROPHILS % (AUTO) 81.2 % (42.0-75.0); PLATELET COUNT 95 X10^3/uL (150.0-450.0); RED BLOOD COUNT 3.01 X10^6/uL (4.7-6.0); RED CELL DISTRIBUTION WIDTH 13.8 % (11.6-16.5)
[2024-11-19 08:37] VITALS: TEMP 98
[2024-11-19] MEDS: FLOMAX PO SCH (09:40)
[2024-11-19] MEDS: LOVENOX INJ 40 MG SYR SC SCH (09:40)
--- NOTE | 2024-11-19 09:49 | DR.OPNOTE ---
OP NOTE Pre-Op Diagnosis: Cholelithiasis and cholecystitis Post-Op Diagnosis: Same Procedure Date Date Of Procedure: 11/18/24 Procedure: INDICATIONS : Cholelithiasis/cholecystitis PROCEDURE : Patient taken to the operative suite and placed in the supine position. General endotracheal anesthesia induced and the entire abdomen prepped and draped in sterile fashion. Patient placed in reverse Trendelenburg and rolled to the patient's left. Curvilinear incision made below the umbilicus in the midline and dissection carried down to the midline fascia. Holding sutures of 0 Vicryl placed on either side of the midline fascia and the fascia opened witha #15 knife blade. Peritoneum opened with Metzenbaum scissors and the abdominal cavity entered. Patient did have some asciies which drained out . Dobbs cannula placed and secured with holding sutures. Abdomen insufflated to 15 mmof Hg with carbon dioxide and under direct vision a 5 mm trocar placed in epigastrium and two 5 mm trocars placed in the right upper quadrant subcostal area. The gallbladder elevated by grasping the fundus but it was difficult to grasp due to the fact that the large gallstone encompassed almost the entire lumen of the gallbladder and there was chronic inflammation. To assist in this I opened the gallbladder at the infundibulum and remove the stone and placed it in a specimen bag and removed it . Dissection then carried out in Calot's triangle defining the cystic duct and cystic artery, i.e. critical view of safety. The cystic duct and cyst artery were clipped proximally ,distally and divided. Peritoneum of the gallbladder incised with el ectrocautery. There was an accessory cystic duct requiring clips placed proximally and distally. The gallbladder removed from the liver bed. There was active bleeding of venous sinusoids . Gallbladder placed in a specimen bag and removed from the abdominal cavity. Surgicel placed over all of the bleeding sites. Direct pressure held over all of these. A flat number injection Huitron drains placed in the abdomen and brought out through the right lateral most 5 trocar incision and placed in Morison's pouch. All trocars removed. The fascia of the initial infraumbilical incision closed with interrupted 0 Vicryl suture. All incisions then closed with 3-0 Vicryl subcutaneous sutures and Steri- Strips. The drain secured to the skin with a 2-0 silk suture ligature A total of 15 cc of 0.5 percent Marcaine with epinephrine injected and distributed between the 4 laparoscopic incisions. Patient extubated and taken to PACU in good condition. Type of Anesthesia: General Anesthetic w/ETT Anesthesia Comment: No complication Findings: Large gallstone encompassing most of the gallbladder lumen. Chronic cholecystitis. Patient on Eliquis and did have some bleeding from the procedure. Tank-Huitron drain left in place. Most the bleeding was venous from the liver Specimen/Pathology: Gallbladder sent to pathology EBL: 550 cc Drains/Tubes Comment: Tank-Huitron drain placed Complications:: none Needle/Sponge Count:: correct Disposition/Condition: Pt. tolerated procedure without difficulty. Extubated in the OR and taken to PACU in stable condition.
--- NOTE | 2024-11-19 09:58 | W.DIS.FURT ---
Summary of Discharge Discharge Summary of Date Date of Exam: 11/19/24 Admission Date Date of Admission: 11/18/24 Admission Diagnosis Patient Problems (Updated 11/18/24 @ 10:20 by Rolo Montoya) Cholelithiasis (Acute) K80.20 See upper abdominal sonogram for additional details performed on 10/19/2024. Hospital Course: This is an 79-year-old male who presented with right upper quadrant pain, nausea and vomiting and noted to have gallstones. CT scan showed a large gallstone compassing most of the lumen of the gallbladder with gallbladder wall thickening consistent with cholecystitis. Patient has history of coronary bypass grafting many years ago. His heart status has been stable. He does have a pacemaker defibrillator in place and is on Eliquis. Eliquis held and he was taken opeating suite where he underwent laparoscopic cholycystectomy. Very large gallbladder and chronic inflammation as well as acute inflammation requiring removal of the stone and then completion of the cholecystectomy. Post procedure he had significant venous bleeding. His hemoglobin declined from 11.9 to 9.7. Drainage has slowed significantly from the Tank-Huitron drain. He is tolerating a diet. He be discharged home today with drain in place and will be instructed how to care for the drain. Will continue his medications including his Eliquis. He already has pain medication at home. He will follow-up with me in 1 week. He will be instructed how to care for the drain and record its output. Vital Signs: Vital Signs (72 hours) 11/17/24 21:32 11/17/24 23:46 11/17/24 23:47 Temperature 98.0 F Pulse Rate 85 Pulse Rate [Right Brachial] Respiratory Rate 20 20 20 Blood Pressure 152/93 Blood Pressure [Right Arm] O2 Sat by Pulse Oximetry 99 Oxygen Delivery Method 11/18/24 01:10 11/18/24 01:11 11/18/24 02:00 Temperature 97.9 F Pulse Rate Pulse Rate [Right Brachial] 72 73 Respiratory Rate 20 18 Blood Pressure Blood Pressure [Right Arm] 134/90 136/88 O2 Sat by Pulse Oximetry 97 98 Oxygen Delivery Method Room Air Room Air Room Air 11/18/24 04:00 11/18/24 07:00 11/18/24 08:00 Temperature 97.9 F 97.5 F L Pulse Rate Pulse Rate [Right Brachial] 71 75 Respiratory Rate 19 17 Blood Pressure Blood Pressure [Right Arm] 138/90 130/85 O2 Sat by Pulse Oximetry 98 98 Oxygen Delivery Method Room Air Room Air Room Air 11/18/24 12:17 11/18/24 12:22 11/18/24 12:27 Temperature 97.0 F L Pulse Rate 70 69 69 Pulse Rate [Right Brachial] Respiratory Rate 20 20 20 Blood Pressure 123/71 119/74 122/78 Blood Pressure [Right Arm] O2 Sat by Pulse Oximetry 96 96 96 Oxygen Delivery Method Aerosol Face Tent Aerosol Face Tent Aerosol Face Tent 11/18/24 12:32 11/18/24 12:37 11/18/24 12:42 Temperature Pulse Rate 69 69 69 Pulse Rate [Right Brachial] Respiratory Rate 20 18 18 Blood Pressure 128/75 125/76 121/77 Blood Pressure [Right Arm] O2 Sat by Pulse Oximetry 97 97 97 Oxygen Delivery Method Nasal Cannula Nasal Cannula Nasal Cannula 11/18/24 12:47 11/18/24 12:57 11/18/24 13:07 Temperature Pulse Rate 69 69 69 Pulse Rate [Right Brachial] Respiratory Rate 18 18 18 Blood Pressure 123/79 125/50 119/78 Blood Pressure [Right Arm] O2 Sat by Pulse Oximetry 97 98 98 Oxygen Delivery Method Nasal Cannula Nasal Cannula Nasal Cannula 11/18/24 13:12 11/18/24 13:39 11/18/24 13:45 Temperature Pulse Rate 69 71 71 Pulse Rate [Right Brachial] Respiratory Rate 18 22 15 Blood Pressure 130/71 Blood Pressure [Right Arm] O2 Sat by Pulse Oximetry 98 100 99 Oxygen Delivery Method Nasal Cannula 11/18/24 13:45 11/18/24 13:58 11/18/24 14:00 Temperature Pulse Rate Pulse Rate [Right Brachial] Respiratory Rate 18 Blood Pressure 134/75 153/84 Blood Pressure [Right Arm] O2 Sat by Pulse Oximetry Oxygen Delivery Method 11/18/24 14:00 11/18/24 14:15 11/18/24 14:15 Temperature 97.7 F Pulse Rate 69 69 Pulse Rate [Right Brachial] Respiratory Rate 18 20 Blood Pressure 160/83 Blood Pressure [Right Arm] O2 Sat by Pulse Oximetry 98 100 Oxygen Delivery Method 11/18/24 14:15 11/18/24 14:27 11/18/24 14:27 Temperature Pulse Rate 69 Pulse Rate [Right Brachial] Respiratory Rate 18 Blood Pressure 160/83 157/85 Blood Pressure [Right Arm] O2 Sat by Pulse Oximetry 100 Oxygen Delivery Method 11/18/24 14:28 11/18/24 14:30 11/18/24 14:30 Temperature Pulse Rate 69 Pulse Rate [Right Brachial] Respiratory Rate 16 19 Blood Pressure 151/93 Blood Pressure [Right Arm] O2 Sat by Pulse Oximetry 100 Oxygen Delivery Method 11/18/24 14:45 11/18/24 14:45 11/18/24 15:00 Temperature Pulse Rate 69 Pulse Rate [Right Brachial] Respiratory Rate 18 Blood Pressure 165/78 153/72 Blood Pressure [Right Arm] O2 Sat by Pulse Oximetry 100 Oxygen Delivery Method 11/18/24 15:00 11/18/24 15:15 11/18/24 15:15 Temperature Pulse Rate 69 69 Pulse Rate [Right Brachial] Respiratory Rate 17 15 Blood Pressure 138/72 Blood Pressure [Right Arm] O2 Sat by Pulse Oximetry 100 100 Oxygen Delivery Method 11/18/24 15:30 11/18/24 15:30 11/18/24 15:45 Temperature 96.4 F L Pulse Rate 69 Pulse Rate [Right Brachial] Respiratory Rate 18 Blood Pressure 144/82 Blood Pressure [Right Arm] O2 Sat by Pulse Oximetry 100 Oxygen Delivery Method 11/18/24 15:45 11/18/24 15:45 11/18/24 15:45 Temperature 96.4 F L Pulse Rate 69 Pulse Rate [Right Brachial] Respiratory Rate 18 Blood Pressure 124/65 Blood Pressure [Right Arm] O2 Sat by Pulse Oximetry 100 Oxygen Delivery Method 11/18/24 16:00 11/18/24 16:00 11/18/24 16:15 Temperature Pulse Rate 69 Pulse Rate [Right Brachial] Respiratory Rate 17 Blood Pressure 127/67 121/62 Blood Pressure [Right Arm] O2 Sat by Pulse Oximetry 100 Oxygen Delivery Method 11/18/24 16:15 11/18/24 16:30 11/18/24 16:30 Temperature Pulse Rate 69 71 Pulse Rate [Right Brachial] Respiratory Rate 20 21 Blood Pressure 116/64 Blood Pressure [Right Arm] O2 Sat by Pulse Oximetry 100 100 Oxygen Delivery Method 11/18/24 16:30 11/18/24 16:33 11/18/24 16:45 Temperature 96.1 F L 96.1 F L Pulse Rate 69 Pulse Rate [Right Brachial] Respiratory Rate 16 Blood Pressure Blood Pressure [Right Arm] O2 Sat by Pulse Oximetry 100 Oxygen Delivery Method 11/18/24 17:00 11/18/24 17:05 11/18/24 17:05 Temperature Pulse Rate 69 70 Pulse Rate [Right Brachial] Respiratory Rate 18 24 Blood Pressure 113/59 Blood Pressure [Right Arm] O2 Sat by Pulse Oximetry 100 100 Oxygen Delivery Method 11/18/24 17:15 11/18/24 17:22 11/18/24 17:30 Temperature 96.4 F L Pulse Rate 69 69 Pulse Rate [Right Brachial] Respiratory Rate 19 17 15 Blood Pressure Blood Pressure [Right Arm] O2 Sat by Pulse Oximetry 82 L 100 Oxygen Delivery Method 11/18/24 17:45 11/18/24 17:52 11/18/24 18:00 Temperature Pulse Rate 69 Pulse Rate [Right Brachial] Respiratory Rate 18 20 Blood Pressure 121/66 Blood Pressure [Right Arm] O2 Sat by Pulse Oximetry 100 Oxygen Delivery Method 11/18/24 18:00 11/18/24 19:00 11/18/24 19:00 Temperature 96.5 F L Pulse Rate 69 69 Pulse Rate [Right Brachial] Respiratory Rate 16 15 Blood Pressure 127/71 Blood Pressure [Right Arm] O2 Sat by Pulse Oximetry 100 100 Oxygen Delivery Method Room Air 11/18/24 20:00 11/18/24 20:04 11/18/24 21:00 Temperature 97.5 F L Pulse Rate 71 68 69 Pulse Rate [Right Brachial] Respiratory Rate 17 20 Blood Pressure 134/63 103/56 Blood Pressure [Right Arm] O2 Sat by Pulse Oximetry 100 100 100 Oxygen Delivery Method 11/18/24 21:13 11/18/24 21:43 11/18/24 22:00 Temperature Pulse Rate 69 Pulse Rate [Right Brachial] Respiratory Rate 21 18 19 Blood Pressure 117/63 Blood Pressure [Right Arm] O2 Sat by Pulse Oximetry 100 Oxygen Delivery Method 11/18/24 23:00 11/19/24 00:00 11/19/24 01:00 Temperature 97.8 F Pulse Rate 69 69 69 Pulse Rate [Right Brachial] Respiratory Rate 18 21 18 Blood Pressure 98/55 87/61 91/52 Blood Pressure [Right Arm] O2 Sat by Pulse Oximetry 100 97 97 Oxygen Delivery Method 11/19/24 02:00 11/19/24 02:20 11/19/24 02:50 Temperature Pulse Rate 71 Pulse Rate [Right Brachial] Respiratory Rate 20 20 17 Blood Pressure 119/63 Blood Pressure [Right Arm] O2 Sat by Pulse Oximetry 98 Oxygen Delivery Method 11/19/24 03:00 11/19/24 04:00 11/19/24 05:00 Temperature 97.8 F Pulse Rate 78 69 69 Pulse Rate [Right Brachial] Respiratory Rate 15 15 19 Blood Pressure 117/56 124/62 97/52 Blood Pressure [Right Arm] O2 Sat by Pulse Oximetry 98 98 98 Oxygen Delivery Method 11/19/24 06:00 11/19/24 06:09 11/19/24 06:39 Temperature 97.8 F Pulse Rate 71 Pulse Rate [Right Brachial] Respiratory Rate 22 20 17 Blood Pressure 104/58 Blood Pressure [Right Arm] O2 Sat by Pulse Oximetry 100 Oxygen Delivery Method 11/19/24 07:00 11/19/24 08:00 11/19/24 08:00 Temperature 98.0 F 98.0 F Pulse Rate 71 70 Pulse Rate [Right Brachial] Respiratory Rate 18 19 Blood Pressure 113/57 133/74 Blood Pressure [Right Arm] O2 Sat by Pulse Oximetry 98 100 Oxygen Delivery Method Room Air Labs: Laboratory Last Values WBC 7.0 X10^3/uL (3.6-10.0) 11/19/24 04:33 RBC 3.01 X10^6/uL (4.7-6.0) L 11/19/24 04:33 Hgb 9.7 g/dL (13.5-18.0) L 11/19/24 04:33 Hct 28.4 % (42.0-54.0) L 11/19/24 04:33 MCV 94.6 fL (80.0-100.0) 11/19/24 04:33 MCH 32.3 pg (27.0-34.0) 11/19/24 04:33 MCHC 34.1 g/dL (33.0-35.0) 11/19/24 04:33 RDW 13.8 % (11.6-16.5) 11/19/24 04:33 Plt Count 95 X10^3/uL (150.0-450.0) L 11/19/24 04:33 Plt Count Comment Decreased (ADEQUATE) 11/18/24 17:03 MPV 9.6 fL (7.4-11.0) 11/19/24 04:33 Neut % (Auto) 81.2 % (42.0-75.0) H 11/19/24 04:33 Lymph % (Auto) 8.1 % (21.0-51.0) L 11/19/24 04:33 [place] % (Auto) 10.6 % (0.0-13.0) 11/19/24 04:33 Eos % (Auto) 0.0 % (0.9-2.9) L 11/19/24 04:33 Baso % (Auto) 0.1 % (0.2-1.0) L 11/19/24 04:33 Neut # (Auto) 5.7 x10^3/uL (2.2-4.8) H 11/19/24 04:33 Lymph # (Auto) 0.6 X10^3/uL (1.3-2.9) L 11/19/24 04:33 [place] # (Auto) 0.7 x10^3/uL (0.3-0.8) 11/19/24 04:33 Eos # (Auto) 0.0 x10^3/uL (0.0-0.2) 11/19/24 04:33 Baso # (Auto) 0.0 X10^3/uL (0.0-0.1) 11/19/24 04:33 Absolute Nucleated RBC 0.0 /100WBC 11/19/24 04:33 Total Counted 100 11/18/24 17:03 Neutrophils % (Manual) 90 % (39-76) H 11/18/24 17:03 Lymphocytes % (Manual) 6 % (13-43) L 11/18/24 17:03 Monocytes % (Manual) 4 % (4-9) 11/18/24 17:03 Plt Morphology Comment Normal (NORMAL) 11/18/24 17:03 RBC Morphology Normal (NORMAL) 11/18/24 17:03 Sodium 141 mmol/L (136-145) 11/18/24 04:59 Corrected Sodium TNP 11/18/24 04:59 Potassium 4.6 mmol/L (3.5-5.1) 11/18/24 04:59 Chloride 108 mmol/L (98-107) H 11/18/24 04:59 Carbon Dioxide 19.4 mmol/L (21-32) L 11/18/24 04:59 BUN 20 mg/dL (7-18) H 11/18/24 04:59 Creatinine 1.35 mg/dL (0.70-1.30) H 11/18/24 04:59 Est GFR (MDRD) Af Amer > 60 (>60) 11/18/24 04:59 Est GFR (MDRD) Non-Af 54 (>60) L 11/18/24 04:59 Glucose 54 mg/dL (65-99) L 11/18/24 04:59 POC Glucose (mg/dL) 152 mg/dL (65-99) H 11/19/24 05:11 Calcium 8.1 mg/dL (8.5-10.1) L 11/18/24 04:59 Corrected Calcium 8.7 mg/dL (8.5-10.1) 11/18/24 04:59 Total Bilirubin 1.10 mg/dL (0.2-1.0) H 11/18/24 04:59 AST 31 Units/L (15-37) 11/18/24 04:59 ALT 29 Units/L (12-78) 11/18/24 04:59 Alkaline Phosphatase 79 Units/L (46-116) 11/18/24 04:59 B-Natriuretic Peptide 393 pg/mL (0-79) H 11/17/24 22:47 Total Protein 6.8 g/dL (6.4-8.2) 11/18/24 04:59 Albumin 3.3 g/dL (3.4-5.0) L 11/18/24 04:59 Globulin 3.5 g/dL (2.5-4.5) 11/18/24 04:59 Albumin/Globulin Ratio 0.9 Ratio (1.1-2.1) L 11/18/24 04:59 Amylase 22 Units/L (25-115) L 11/17/24 22:47 Lipase 13 Units/L (16-77) L 11/17/24 22:47 Blood Type O POSITIVE 11/18/24 17:03 Antibody Screen Negative 11/18/24 17:03 Crossmatch See Detail 11/18/24 17:03 Reason For Visit: CHOLELITHIASIS/PERICHOLECYSTIC FLUID Discharge Date Discharge Date: 11/19/24 Discharge Diagnosis All Active Problems (Updated 11/18/24 @ 10:20 by Rolo Montoya) Past history of myocardial infarction (Acute) Cholelithiasis with cholecystitis (Acute) Pacemaker displacement (Acute) Pacemaker displacement (Acute) Cholelithiasis (Acute) Feeling anxious (Acute) Constipation by delayed colonic transit (Acute) Right upper quadrant abdominal tenderness without rebound tenderness (Acute) Functional GI symptoms (Acute) Cardiomyopathy (Chronic) UTI (urinary tract infection) (Acute) AICD (automatic cardioverter/defibrillator) present (Acute) Medication adverse effect (Acute) Hyperlipidemia (Acute) Leg cramps (Acute) Therapeutic opioid-induced constipation (OIC) (Acute) Chronic low back pain (Acute) Trauma to left eye (Acute) Encounter for medication review (Acute) Hypoglycemic episode in patient with diabetes mellitus (Acute) Spasm of muscle of lower back (Acute) Diabetes mellitus type 2 in nonobese (Chronic) Low back pain radiating to left leg (Acute) Fracture of phalanx of right thumb (Acute) Open fracture of right thumb (Acute) Laceration of thumb (Acute) Diarrhea (Acute) Chronic idiopathic thrombocytopenia (Acute) Vasovagal episode (Acute) Apnea (Acute) Nausea and vomiting in adult patient (Acute) Abdominal pain (Acute) Urinary tract infection (Acute) Epididymitis (Acute) Liver lesion, right lobe (Acute) Diverticulosis of colon (Acute) Cardiac arrhythmia (Acute) COVID-19 (Acute) D-dimer, elevated (Acute) Respiratory distress (Acute) CHF (congestive heart failure) (Acute) Nausea in adult patient (Acute) Plan of Treatment: Continue with present treatment and follow up plan. Pt is to keep follow up appointment as instructed and take medications as ordered. Discharge Medications Discharge Medications: No Known Drug Allergies Allergy (Unknown, Verified 11/17/24 21:46) c o n t i n u e a l l h o m e m e d i c a r t i o n s Discharge Disposition Assessment: see hospital course Discharge Plan Discharge Plan Hospital Course: This is an 79-year-old male who presented with right upper quadrant pain, nausea and vomiting and noted to have gallstones. CT scan showed a large gallstone compassing most of the lumen of the gallbladder with gallbladder wall thickening consistent with cholecystitis. Patient has history of coronary bypass grafting many years ago. His heart status has been stable. He does have a pacemaker defibrillator in place and is on Eliquis. Eliquis held and he was taken opeating suite where he underwent laparoscopic cholycystectomy. Very large gallbladder and chronic inflammation as well as acute inflammation requiring removal of the stone and then completion of the cholecystectomy. Post procedu re he had significant venous bleeding. His hemoglobin declined from 11.9 to 9.7. Drainage has slowed significantly from the Tank-Huitron drain. He is tolerating a diet. He be discharged home today with drain in place and will be instructed how to care for the drain. Will continue his medications including his Eliquis. He already has pain medication at home. He will follow-up with me in 1 week. He will be instructed how to care for the drain and record its output. Patient Disposition: 01 HOME, SELF-CARE Condition: Stable Health Concerns: Post Hospitalization: new medications and changes needed to prevent readmission or further decline. Pt educated and given instructions on all concerns. Will instruct patient how to care for and Tank-Huitron drainage Care Plan Goals: Problem: Infection Goal: Temperature within normal limits. Resolved infection. Instructions: Follow provided instructions. Follow up with primary physician as directed. Contact primary care physician or report to the closest Emergency Room if condition worsens. Plan of Treatment: Continue with present treatment and follow up plan. Pt is to keep follow up appointment as instructed and take medications as ordered. Assessment: see hospital course Prescriptions: Continued tamsulosin 0.4 mg capsule 0.4 mg PO QPM Qty: 90 3RF potassium chloride 10 mEq tablet extended release 10 meq PO QDAY Qty: 90 3RF Rx Instructions: Take one tablet PO once daily when you take the bumetanide (DME) FreeStyle Lite Strips Strip See Rx Instructions .Route Qty: 100 6RF Rx Instructions: Use 1 strip to check glucose daily nitroglycerin 0.4 mg tablet, sublingual 0.4 mg sublingual Q5M PRN (Reason: chest pain) Qty: 30 4RF Eliquis 5 mg tablet 5 mg PO BID oxycodone 20 mg tablet 20 mg PO Q6H MDD 4 tablets per 24 hours PRN (Reason: pain) 30 Days Qty: 120 0RF isosorbide dinitrate 5 mg tablet 2.5 mg PO BID Rx Instructions: 1/2 tablet BID baclofen 10 mg tablet 10 mg PO QID PRN (Reason: Leg cramps/muscle cramps) Qty: 60 2RF ondansetron HCl 8 mg tablet 8 mg PO Q8H PRN (Reason: nausea and vomiting) Qty: 30 0RF bumetanide 2 mg tablet 2 mg PO BID carvedilol 6.25 mg tablet 9.375 mg PO Q12H MDD 3 Rx Instructions: Take one and one-half tablet every 12 hours with food. glimepiride 1 mg tablet 1.5 mg PO BID MDD 1.5 alprazolam 0.5 mg tablet 0.5 mg PO QDAY MDD 2 PRN (Reason: Anxiety nervousness) Orders to Discharge Patient Discharge Orders: Discharge (Routine); Ordered 11/19/24 Ordered By: Rolo Montoya Follow ups/Referrals Follow ups/Referrals: KATHERINE GILBERT FNP [Nurse Practitioner, MEDICAL] Referral Note: Follow up with PCP if needed. Rolo Montoya [STAFF PHYSICIAN, Unknown] - 11/28/24 1:00 pm Instructions Instructions: Bleeding Precautions When on Anticoagulant Therapy, Adult, Laparoscopic Cholecystectomy, Care After, Preventing Problems After Surgery, How to Prevent Constipation After Surgery, Surgical Drain Home Care Stand Alone Forms: Find Help Web Site, Post Hospital Follow Up Care Print Language: CHADIAN
[2024-11-19 10:44] VITALS: BP 116/84; PULSE 69; RESP 16; O2SAT 95
== END 2024-11-19 11:30 | disposition home or self-care (01) ==
LOC: ER 21:25 → MED/SURG 21:25 → ICU 11-18 13:29
PROVIDERS: ADMIT Surgery; ATTEND Surgery
DX: R94.4 Abnormal results of kidney function studies; I10 Essential (primary) hypertension; R11.2 Nausea with vomiting, unspecified; E78.5 Hyperlipidemia, unspecified; R10.11 Right upper quadrant pain; E11.649 Type 2 diabetes mellitus with hypoglycemia without coma; I42.9 Cardiomyopathy, unspecified; I25.2 Old myocardial infarction; R10.84 Generalized abdominal pain; K80.12 Calculus of gallbladder with acute and chronic cholecystitis without obstruction; E80.6 Other disorders of bilirubin metabolism

== ENCOUNTER 2024-12-07 19:56 | Observation (INO) ==
[2024-12-07 22:30] VITALS: BMI 24.4
[2024-12-07] MEDS ORDERED: KLOR-CON 10 MEQ TAB PO PRN (22:45)
[2024-12-07] MEDS ORDERED: BUMEX TAB 1 MG PO PRN (22:45)
[2024-12-07] MEDS: NORCO 5/325 MG TAB PO PRN (23:20)
[2024-12-07] MEDS: D5 1/2 NS 1,000 ML 1,000 ML IV SCH (23:27)
[2024-12-07] MEDS: ZOSYN VIAL 3.375 GRAMS 3.375 G in NS 100 ML IV 100 ML IV SCH (23:41)
[2024-12-07] MEDS: NS 250 ML IV 25 ML IV PRN (23:41)
[2024-12-08] MEDS: ALPRAZOLAM ODT PO PRN (02:06)
[2024-12-08] MEDS: LIORESAL PO PRN (02:06)
[2024-12-08] MEDS ORDERED: NovoLIN R (or HumuLIN R) SUBCUT PRN (04:13)
[2024-12-08 06:49] LABS: MEAN PLATELET VOLUME 8.2 fL (7.4-11.0); RED CELL DISTRIBUTION WIDTH 14.1 % (11.6-16.5)
[2024-12-08 06:56] LABS: COR CA(FOR HYPOALB) 9.0 mg/dL (8.5-10.1); COR NA(FOR HYPERGLY) 140.0 mmol/L (136-145); CREATININE 1.48 mg/dL (0.70-1.30); eGFR NON BLACK RACES 49.0 (>60)
[2024-12-08] MEDS ORDERED: CONSULT PHARMACY - POTASSIUM & MAGNESIUM XX SCH (07:00)
[2024-12-08 07:50] VITALS: BP 126/74; PULSE 78; RESP 21; TEMP 97.8; O2SAT 99
[2024-12-08] MEDS: COREG TAB 6.25 MG PO SCH (08:58)
[2024-12-08] MEDS: K-DUR TAB 20 MEQ PO SCH (08:59)
[2024-12-08] MEDS: AMARYL TAB 4 MG PO SCH (09:00)
[2024-12-08] MEDS: ISOSORBIDE DINITRATE PO SCH (09:01)
[2024-12-08] MEDS: ELIQUIS PO SCH (09:40)
[2024-12-08] MEDS ORDERED: SNACK - Diabetic Appropriate PO SCH (20:00)
[2024-12-08] MEDS ORDERED: FLOMAX PO SCH (21:00)
== END 2024-12-08 11:00 | disposition home or self-care (01) ==
LOC: MED/SURG
PROVIDERS: ADMIT Surgery; ATTEND Surgery
DX: N40.0 Benign prostatic hyperplasia without lower urinary tract symptoms; E11.65 Type 2 diabetes mellitus with hyperglycemia; R10.84 Generalized abdominal pain; K91.873 Postprocedural seroma of a digestive system organ or structure following other procedure; I10 Essential (primary) hypertension; R47.9 Unspecified speech disturbances; I25.810 Atherosclerosis of coronary artery bypass graft(s) without angina pectoris; E88.09 Other disorders of plasma-protein metabolism, not elsewhere classified; I25.2 Old myocardial infarction; Z95.2 Presence of prosthetic heart valve; E83.51 Hypocalcemia; Z65.8 Other specified problems related to psychosocial circumstances; Z95.0 Presence of cardiac pacemaker; Z90.49 Acquired absence of other specified parts of digestive tract

== ENCOUNTER 2025-05-18 20:23 | Observation (INO) ==
[2025-05-18] MEDS: ZOFRAN INJ 4 MG VIAL IVP ONE ×2 (20:39→21:49)
--- NOTE | 2025-05-18 20:40 | DR.N/VMALE ---
HPI Time Seen Time Seen by Provider: 05/18/25 20:38 Complaints Chief Complaint Doctors Comments: 80-year-old male from home to ED POV states severe abdominal pain with many episodes of vomiting since 10 AM today . He reports a history of gallstones. Patient believes he ate some bad food yesterday PMH PMH Past Medical History: Diabetes, Hypertension and [place] Past Surgical History: Yes Surgical History: Cholecystectomy, Ortho Surgery and Other Family History Family Medical History: Diabetes Mellitus and Heart Failure Social History Do you use any recreational Drugs:: No ROS Review of Systems Constitutional: No Symptoms Reported Eyes: No Symptoms Reported ENTM: No Symptoms Reported Respiratoy: No Symptoms Reported Cardiovascular: No Symptoms Reported Gastrointestinal/Abdominal: See HPI, Abdominal Pain and Vomiting Genitourinary: No Symptoms Reported Neurological: No Symptoms Reported Musculoskeletal: No Symptoms Reported Integumentary: No Symptoms Reported Hematologic/Lymphatic: No Symptoms Reported Endocrine: No Symptoms Reported Psychiatric: No Symptoms Reported All Other Systems: Reviewed and Negative PE Vital Signs Vitals: Vital Signs Temperature 98.5 F Temperature 98.5 F Pulse Rate 64 Pulse Rate 66 Pulse Rate 77 Pulse Rate 78 Pulse Rate 80 Pulse Rate 80 Pulse Rate 85 Pulse Rate 85 Respiratory Rate 18 Respiratory Rate 21 Respiratory Rate 61 Respiratory Rate 43 Respiratory Rate 53 Respiratory Rate 19 Respiratory Rate 20 Respiratory Rate 18 Respiratory Rate 16 Blood Pressure 152/78 Blood Pressure 158/74 Blood Pressure 158/74 O2 Sat by Pulse Oximetry 93 O2 Sat by Pulse Oximetry 97 O2 Sat by Pulse Oximetry 93 O2 Sat by Pulse Oximetry 93 O2 Sat by Pulse Oximetry 95 O2 Sat by Pulse Oximetry 96 O2 Sat by Pulse Oximetry 97 O2 Sat by Pulse Oximetry 97 General Limitations: No Limitations General Appearance: Alert and In No Apparent Distress Head Head Exam: Normal Inspection Eyes Eye exam: Normal Appearance ENT ENT Exam: Normal Exam Neck Neck Exam: Normal Inspection Chest Chest Inspection: Normal Inspection Respiratory Respiratory Exam: Normal Lung Sounds Bilat Respiratory Exam: Bilateral: Clear to Auscultation Cardiovascular Cardiovascular Exam: Regular Rate and Normal Rhythm Abdominal Exam Abdominal Exam: Normal Inspection, Normal Bowel Sounds and Soft Rectal Rectal Exam: Deferred Exam: Male: Deferred Extremities Extremities Exam: Normal Inspection Back Back Exam: Normal Inspection Neurologic Neurological Exam: Alert and Oriented X3 Psychiatric Psychiatric Exam: Normal Affect and Normal Mood Skin Skin Exam: Warm, Dry, Intact and Normal Color COURSE Treatment Treatment: Reviewed findings with patient continues to have vomiting discussed with Dr. Slaughter will admit ROR Labs Reviewed 05/18/25 20:35 05/18/25 20:35 Laboratory: WBC 9.4 X10^3/uL (3.6-10.0) 05/18/25 20:35 RBC 4.66 X10^6/uL (4.7-6.0) L 05/18/25 20:35 Hgb 14.8 g/dL (13.5-18.0) 05/18/25 20: Hct 43.9 % (42.0-54.0) 05/18/25 20:35 MCV 94.1 fL (80.0-100.0) 05/18/25 20: MCH 31.7 pg (27.0-34.0) 05/18/25 20: MCHC 33.7 g/dL (33.0-35.0) 05/18/25 20: RDW 15.1 % (11.6-16.5) 05/18/25 20: Plt Count 133 X10^3/uL (150.0-450.0) L 05/18/25 20:35 Plt Count Comment Decreased (ADEQUATE) 05/18/25 20: MPV 9.3 fL (7.4-11.0) 05/18/25 20:35 Neut % (Auto) 92.3 % (42.0-75.0) H 05/18/25 20:35 Lymph % (Auto) 2.5 % (21.0-51.0) L 05/18/25 20:35 [place] % (Auto) 4.4 % (0.0-13.0) 05/18/25 20:35 Eos % (Auto) 0.5 % (0.9-2.9) L 05/18/25 20:35 Baso % (Auto) 0.3 % (0.2-1.0) 05/18/25 20:35 Neut # (Auto) 8.7 x10^3/uL (2.2-4.8) H 05/18/25 20:35 Lymph # (Auto) 0.2 X10^3/uL (1.3-2.9) L 05/18/25 20:35 [place] # (Auto) 0.4 x10^3/uL (0.3-0.8) 05/18/25 20:35 Eos # (Auto) 0.0 x10^3/uL (0.0-0.2) 05/18/25 20:35 Baso # (Auto) 0.0 X10^3/uL (0.0-0.1) 05/18/25 20:35 Absolute Nucleated RBC 0.1 /100WBC 05/18/25 20:35 Total Counted 100 05/18/25 20:35 Neutrophils % (Manual) 95 % (39-76) H 05/18/25 20:35 Band Neutrophils % 1 % (0-10) 05/18/25 20:35 Lymphocytes % (Manual) 2 % (13-43) L 05/18/25 20:35 Monocytes % (Manual) 2 % (4-9) L 05/18/25 20:35 Plt Morphology Comment Normal (NORMAL) 05/18/25 20:35 RBC Morphology Normal (NORMAL) 05/18/25 20:35 Sodium 142 mmol/L (136-145) 05/18/25 20:35 Corrected Sodium 144 mmol/L (136-145) 05/18/25 20:35 Potassium 3.9 mmol/L (3.5-5.1) 05/18/25 20:35 Chloride 103 mmol/L (98-107) 05/18/25 20:35 Carbon Dioxide 28.4 mmol/L (21-32) 05/18/25 20:35 BUN 27 mg/dL (7-18) H 05/18/25 20:35 Creatinine 1.70 mg/dL (0.70-1.30) H 05/18/25 20:35 Est GFR (MDRD) Af Amer 50 (>60) L 05/18/25 20:35 Est GFR (MDRD) Non-Af 41 (>60) L 05/18/25 20:35 Glucose 204 mg/dL (65-99) H 05/18/25 20:35 Calcium 8.5 mg/dL (8.5-10.1) 05/18/25 20:35 Corrected Calcium TNP 05/18/25 20:35 Total Bilirubin 1.40 mg/dL (0.2-1.0) H 05/18/25 20:35 AST 23 Units/L (15-37) 05/18/25 20:35 ALT 29 Units/L (12-78) 05/18/25 20:35 Alkaline Phosphatase 87 Units/L (46-116) 05/18/25 20:35 B-Natriuretic Peptide 415 pg/mL (0-79) H 05/18/25 20:35 Total Protein 7.6 g/dL (6.4-8.2) 05/18/25 20:35 Albumin 3.8 g/dL (3.4-5.0) 05/18/25 20:35 Globulin 3.8 g/dL (2.5-4.5) 05/18/25 20:35 Albumin/Globulin Ratio 1.0 Ratio (1.1-2.1) L 05/18/25 20:35 Amylase 41 Units/L (25-115) 05/18/25 20:35 Lipase 19 Units/L (16-77) 05/18/25 20:35 XRAY X-ray Results: IMPRESSION: 1. No acute abdominal or pelvic abnormality identified. 2. Colonic diverticulosis and moderate constipation. 3. Additional chronic findings Opioid Opioid Risk Tool Age (Scottie box if 16-45): No History of Preadolescent Sexual Abuse: No Total: 0 Total Score Risk Category: Low Risk Copyright: Darian VARNER predicting aberrant behaviors Discharge Plan Diagnosis Discharge Problem: Vomiting Discharge Plan Patient Disposition: 09 ADMITTED INPATIENT Condition: Stable Prescriptions: New ondansetron HCl 4 mg tablet 4 mg PO Q8H PRN (Reason: nausea and vomiting) 4 Days Qty: 12 0RF No Action (DME) FreeStyle Lite Strips Strip See Rx Instructions .Route Qty: 100 6RF Rx Instructions: Use 1 strip to check glucose daily tamsulosin 0.4 mg capsule 0.4 mg PO QPM Qty: 90 3RF clonazepam 1 mg tablet 0.5 mg PO TID MDD 1-1/2 tabs daily 90 Days Qty: 135 0RF potassium chloride 10 mEq capsule, extended release 10 meq PO QDAY Qty: 90 3RF Eliquis 5 mg tablet 5 mg PO BID 90 Days Qty: 180 3RF nitroglycerin 0.4 mg tablet, sublingual 0.4 mg sublingual Q5M MDD Per usual chest pain protocol PRN (Reason: chest pain) Qty: 25 4RF cetirizine 10 mg tablet 10 mg PO QDAY MDD 1 90 Days Qty: 90 0RF ondansetron HCl 8 mg tablet 8 mg PO Q8H MDD 3 PRN (Reason: nausea and vomiting) 60 Days Qty: 90 0RF oxycodone 20 mg tablet 20 mg PO Q6H MDD 4 tablets per 24 hours PRN (Reason: pain) 30 Days Qty: 120 0RF bumetanide 2 mg tablet 2 mg PO BID Qty: 180 3RF baclofen 10 mg tablet 10 mg PO QID PRN (Reason: Leg cramps/muscle cramps) Qty: 60 2RF amiodarone 200 mg tablet 200 mg PO QDAY Qty: 90 3RF carvedilol [Coreg] 3.125 mg tablet 3.125 mg PO BID Qty: 180 3RF Rx Instructions: must administer with a meal/food glimepiride 1 mg tablet 1.5 mg PO BIDWM MDD 1.5 Health Concerns: Post Hospitalization: new medications and changes needed to prevent readmission or further decline. Pt educated and given instructions on all concerns. Plan of Treatment: Continue with present treatment and follow up plan. Pt is to keep follow up appointment as instructed and take medications as ordered. Orders to Discharge Patient Discharge Orders: Transfer (Routine); Ordered 05/18/25 Ordered By: Hao John Follow ups/Referrals Follow ups/Referrals: KATHERINE GILBERT FNP [Primary Care Provider, MEDICAL] - 3 days Instructions Print Language: TURKMEN
[2025-05-18 20:52] LABS: COR NA(FOR HYPERGLY) 144 mmol/L (136-145); CREATININE 1.70 mg/dL (0.70-1.30); eGFR NON BLACK RACES 41 (>60)
[2025-05-18 21:06] LABS: MEAN PLATELET VOLUME 9.3 fL (7.4-11.0); RED CELL DISTRIBUTION WIDTH 15.1 % (11.6-16.5)
[2025-05-18 21:21] LABS: BAND NEUTROPHILS % 1 % (0-10); PLATELET MORPHOLOGY COMMENT NORMAL (NORMAL)
[2025-05-18] MEDS: OMNIPAQUE 350 mg/mL 100 mL BTL IVP NR (21:37)
[2025-05-18] MEDS: MORPHINE SULFATE INJ 2 MG INJ IVP ONE (21:49)
--- NOTE | 2025-05-18 22:13 | CT ---
EXAM: CT ABDOMEN AND PELVIS WITH CONTRAST HISTORY: PAIN; nausea and vomiting x24 hours, LLQ abdominal pain that patient rated a 4/10 on numeric pain scale COMPARISON: 01/29/2025. TECHNIQUE: Axi al CT images were obtained through the abdomen and pelvis after the intravenous administration of contrast. Coronal reformatted images were included. Informed written consent was obtained prior to contrast administration. All CT scans at this facility use dose modulation, iterative reconstruction, and/or weight based dosing when appropriate to reduce radiation dose to as low as reasonably achievable. FINDINGS: LOWER THORAX: Within normal limits. ABDOMEN: LIVER: Within normal limits. GALLBLADDER: Surgically absent SPLEEN: Within normal limits. PANCREAS: Within normal limits. KIDNEYS: Within normal limits. ADRENAL GLANDS: Within normal limits. GI TRACT: Course and caliber are within normal limits. Scattered diverticulosis of the sigmoid and descending colon. Moderate constipation. LYMPH NODES: No abnormally enlarged nodes. VESSELS: Within normal limits. PERITONEUM / RETROPERITONEUM: No free gas. PELVIS: BLADDER: Chronic bladder wall thickening. GENITALS: Within normal limits. BONES: Fusion L4/L5. Severe lumbar spondylosis. Left inguinal hernia with fat. IMPRESSION: 1. No acute abdominal or pelvic abnormality identified. 2. Colonic diverticulosis and moderate constipation. 3. Additional chronic findings THIS IS AN ELECTRONICALLY VERIFIED FINAL REPORT 05/18/2025 10:09 PM - Electronically signed by Rachel Frazier MD
[2025-05-18] MEDS ORDERED: COMPAZINE INJ IVP PRN (23:31)
[2025-05-18] MEDS ORDERED: ZOFRAN TAB 4 MG PO PRN (23:49)
[2025-05-19] MEDS: ZOFRAN INJ 4 MG VIAL ONE (03:11)
[2025-05-19] MEDS: NS 1,000 ML IV 1,000 ML ONE (03:12)
[2025-05-19] MEDS: OMNIPAQUE 350 mg/mL 100 mL BTL 100 ML ONE (03:12)
[2025-05-19] MEDS: NS 1,000 ML IV 1,000 ML IV ONE (04:38)
[2025-05-19] MEDS: LINZESS PO STA (04:38)
[2025-05-19] MEDS: COLACE CAP 100 MG PO STA (04:38)
[2025-05-19 05:31] LABS: COR NA(FOR HYPERGLY) 145.0 mmol/L (136-145); CREATININE 1.51 mg/dL (0.70-1.30); eGFR NON BLACK RACES 47.0 (>60)
[2025-05-19 05:35] LABS: MEAN PLATELET VOLUME 9.4 fL (7.4-11.0); RED CELL DISTRIBUTION WIDTH 15.2 % (11.6-16.5)
[2025-05-19 05:52] LABS: COR CA(FOR HYPOALB) 8.6 mg/dL (8.5-10.1)
[2025-05-19] MEDS: KLONOPIN TAB 1 MG PO SCH (06:00)
[2025-05-19 06:17] LABS: METAMYELOCYTES % 1; PLATELET MORPHOLOGY COMMENT NORMAL (NORMAL)
[2025-05-19 06:19] LABS: BAND NEUTROPHILS % 0 % (0-10)
[2025-05-19 07:39] VITALS: BMI 25.2
[2025-05-19] MEDS ORDERED: CONSULT PHARMACY - POTASSIUM & MAGNESIUM XX SCH (08:00)
[2025-05-19 08:07] VITALS: TEMP 98.3
[2025-05-19] MEDS: CORDARONE TAB 200 MG PO SCH (09:03)
[2025-05-19] MEDS: COREG TAB 3.125 MG PO SCH (09:03)
[2025-05-19] MEDS: COLACE CAP 100 MG PO SCH (09:03)
[2025-05-19] MEDS: ELIQUIS PO SCH (09:03)
[2025-05-19] MEDS: ROXICODONE TAB 5 MG PO PRN (09:14)
[2025-05-19] MEDS: K-DUR TAB 20 MEQ PO SCH (09:30)
[2025-05-19] MEDS: NITROSTAT SL PRN (09:44)
--- NOTE | 2025-05-19 09:44 | EKG ---
Test Reason : CHEST DISCOMFORT Blood Pressure : */* mmHG Vent. Rate : 81 BPM Atrial Rate : 80 BPM P-R Int : * ms QRS Dur : 164 ms QT Int : 488 ms P-R-T Axes : 3 -78 263 degrees QTc Int : 566 ms AV dual-paced rhythm Abnormal ECG No previous ECGs available Confirmed by Pedro Sotelo MD ([id number]) on 05/20/2025 7:32:43 AM Referred By: Confirmed By: Pedro Sotelo MD
[2025-05-19 09:48] VITALS: RESP 20
[2025-05-19 11:36] VITALS: BP 130/72; PULSE 82; O2SAT 97
== END 2025-05-19 13:05 | disposition home or self-care (01) ==
LOC: ER 20:23 → MED/SURG 20:23
PROVIDERS: ADMIT Obstetrics & Gynecology Obstetrics; ATTEND Obstetrics & Gynecology Obstetrics
DX: R10.84 Generalized abdominal pain; K59.03 Drug induced constipation; E80.6 Other disorders of bilirubin metabolism; R94.4 Abnormal results of kidney function studies; I25.2 Old myocardial infarction; R11.2 Nausea with vomiting, unspecified; K57.30 Diverticulosis of large intestine without perforation or abscess without bleeding; I10 Essential (primary) hypertension; E11.65 Type 2 diabetes mellitus with hyperglycemia; R94.31 Abnormal electrocardiogram [ECG] [EKG]; R07.89 Other chest pain; R79.89 Other specified abnormal findings of blood chemistry; Z79.899 Other long term (current) drug therapy; F11.90 Opioid use, unspecified, uncomplicated; Z79.01 Long term (current) use of anticoagulants